=== PATIENT | female | born 1965 | race Caucasian/White ===

== ENCOUNTER 2018-08-22 08:30 | Outpatient (CLI) | payer BC ==
--- NOTE | 2018-08-22 10:33 | ULT ---
ABDOMINAL ULTRASOUND COMPLETE: History: Primary biliary cholangitis. FINDINGS: There is abnormal echogenicity throughout the liver as well as hepatomegaly measuring at least 22.4 c m. The gallbladder demonstrates an echogencity within the dependent portion of the gallbladder withou t shadowing, possibly a nonshadowing stone or focal nodular sludge. Common bile duct 0.4 cm. No abnor mal gallbladder wall thickening or pericholecystic fluid. No intrahepatic ductal dilatation. No evide nce for focal liver mass. Pancreas, IVC, aorta and spleen are unremarkable. The kidneys show no hydro nephrosis. IMPRESSION: Hepatomegaly with abnormal liver echogenicity. Nonshadowing echogencity within the gallbladder, possi reji a nonshadowing stone or focal nodular sludge without gallbladder wall thickening or ductal dilata tion. No abscess or abnormal fluid collection. POS: NAT
== END 2018-08-22 08:31 | disposition home or self-care (01) ==
LOC: BICULT 08:30
PROVIDERS: ATTEND Internal Medicine
DX: Z12.31 Encounter for screening mammogram for malignant neoplasm of breast (principal); K74.3 Primary biliary cirrhosis; I85.00 Esophageal varices without bleeding; Z12.11 Encounter for screening for malignant neoplasm of colon; R16.0 Hepatomegaly, not elsewhere classified; R93.2 Abnormal findings on diagnostic imaging of liver and biliary tract
CPT/HCPCS: 76700; 77063; 77067

== ENCOUNTER 2020-04-15 07:52 | Outpatient (CLI) | payer BC ==
--- NOTE | 2020-04-15 09:31 | ULT ---
ULTRASOUND ABDOMEN COMPLETE: DATE: 04/15/2020. HISTORY: A 54-year-old female with ICD-10: K74.3, primary biliary cholangitis. COMPARISON: 08/22/2018. TECHNIQUE: Barron-scale ultrasound evaluation of the liver, gallbladder, spleen, pancreas, common bile duct, kidne ys, abdominal aorta, and inferior vena cava (IVC). FINDINGS: No free fluid identified. Liver: Nodular margins. Coarse and heterogeneous parenchymal echotexture. Main portal vein: Hepatopetal flow. Common duct: 3 mm. Pancreas: Nonspecific sonographic appearance. Gallbladder: Once again, a nonshadowing, hyperechoic 0.5 x 1.9 cm intraluminal structure is present at the dependent portion of the gallbladder body, similar to prior study. Now, in addition, there ar e a few more of these nonshadowing hyperechoic structures. No excessive luminal distension. No mura l thickening. Bilateral kidneys: No hydronephrosis. Spleen: 20 x 4.5 cm. Abdominal aorta: Atherosclerotic irregularity throughout. No aneurysm. Inferior vena cava: Poorly visualized. IMPRESSION: 1. Cirrhosis. 2. Several nonshadowing hyperechoic foci in the gallbladder. These could be multiple gallstones or polyps. 3. Elongated but thin spleen. PASTOR Díaz POS: JOSE E
== END 2020-04-15 07:53 | disposition home or self-care (01) ==
LOC: SCSULT 07:52
PROVIDERS: ATTEND Internal Medicine
DX: Z12.11 Encounter for screening for malignant neoplasm of colon (principal); K74.3 Primary biliary cirrhosis; I85.00 Esophageal varices without bleeding; D73.89 Other diseases of spleen; Q89.09 Congenital malformations of spleen
CPT/HCPCS: 93975

== ENCOUNTER 2020-10-15 08:03 | Outpatient (CLI) | payer BC | END 2020-10-15 08:04 | disposition home or self-care (01) | LOC: BICULT 08:03 | PROVIDERS: ATTEND Internal Medicine | DX: I85.00 Esophageal varices without bleeding (principal); D12.6 Benign neoplasm of colon, unspecified; K74.3 Primary biliary cirrhosis; E55.9 Vitamin D deficiency, unspecified; K80.20 Calculus of gallbladder without cholecystitis without obstruction; R16.1 Splenomegaly, not elsewhere classified | CPT/HCPCS: 93975 ==

== ENCOUNTER 2020-10-15 08:34 | Outpatient (CLI) | payer BC | END 2020-10-15 08:35 | disposition home or self-care (01) | LOC: BICMAMMO 08:34 | PROVIDERS: ATTEND Internal Medicine | DX: Z13.820 Encounter for screening for osteoporosis (principal); K74.3 Primary biliary cirrhosis; I85.00 Esophageal varices without bleeding; D12.6 Benign neoplasm of colon, unspecified; E55.9 Vitamin D deficiency, unspecified; M85.89 Other specified disorders of bone density and structure, multiple sites | CPT/HCPCS: 77080 ==

== ENCOUNTER 2021-12-02 12:04 | Outpatient (CLI) | payer BC | END 2021-12-02 12:05 | disposition home or self-care (01) | LOC: BICRAD 12:04 | PROVIDERS: ATTEND Internal Medicine Rheumatology | DX: M25.561 Pain in right knee (principal) ==

== ENCOUNTER 2023-04-06 16:55 | Emergency (ER) | payer BC ==
[2023-04-06] MEDS ORDERED: Ondansetron PF 4 MG/2 ML Vial ONE (17:32)
[2023-04-06] MEDS ORDERED: cefTRIAXone (ROCEPHIN) 1 GM VIAL ONE ×2 (17:33→21:09)
[2023-04-06] MEDS ORDERED: Octreotide Acetate 500 MCG/ML VIAL ONE (17:33)
[2023-04-06] MEDS ORDERED: Pantoprazole 40 MG VIAL ONE (17:33)
[2023-04-06] MEDS ORDERED: fentaNYL PF 100 MCG/2 ML SYRINGE ONE (18:17)
[2023-04-06] MEDS ORDERED: Ketamine 50 MG/ML (10ML VIAL) ONE (18:18)
[2023-04-06 18:21] LABS: #Eosinphils 0.1 thou/uL (0.0-0.7); #Monocytes 0.5 thou/uL (0.11-0.59); #Neutrophils 4.1 thou/uL (1.40-6.50); %Basophils 0.7 % (0.0-1.0); %Eosinophils 0.9 % (0.0-10.0); %Monocytes 9.2 % (0.0-10.0); %Neutrophils 71.7 % (42.0-75.0); Hematocrit 28.4 % (36.0-47.0); Hemoglobin 9.3 g/dL (12.0-16.0); Mean Corpuscular HGB CONC 32.7 g/dL (32.0-36.0); Mean Corpuscular Hemoglobin 33.5 pg (27.0-31.0); Mean Corpuscular Volume 102.2 fl (78.0-98.0); Mean Platelet Volume 12.1 fL (7.4-10.4); Platelet Count 134 10x3/uL (130-400); RBC Distribution Width 13.5 % (11.5-14.5); Red Blood Cell (RBC) Count 2.78 mill/uL (4.20-5.40); White Blood Cell (WBC) Count 5.8 10x3/uL (4.8-10.8)
[2023-04-06 18:40] LABS: INR-International Normal Ratio 1.1; Prothrombin Time 14.5 sec (12.0-14.7)
[2023-04-06 18:41] LABS: PTT 33.2 sec (22.9-36.1)
[2023-04-06] MEDS ORDERED: Pantoprazole 80 MG in Sodium Chloride 0.9% 100 ML IVPB SCH (18:45)
[2023-04-06] MEDS ORDERED: Octreotide Acetate 1,250 MCG in Sodium Chloride 0.9% 250 ML 250 ML IVPB SCH ×2 (18:45→21:00)
[2023-04-06] MEDS ORDERED: PHENYLEPHRINE-NS 100 MCG/ML 10 ML SYRINGE ONE (18:50)
[2023-04-06] MEDS ORDERED: Lidocaine 1% PF 5 ML VIAL ONE (18:50)
[2023-04-06] MEDS ORDERED: Glycopyrrolate 0.2 MG/ML 5 ML SYRINGE ONE (18:50)
[2023-04-06] MEDS ORDERED: ePHEDrine Sulfate 50 MG/10 ML VIAL ONE (18:50)
[2023-04-06] MEDS ORDERED: Rocuronium Bromide 10 MG/ML (10ML VIAL) ONE (18:50)
[2023-04-06] MEDS ORDERED: Calcium Chloride 1 GM/10 ML Abboject SYRINGE ONE (18:50)
[2023-04-06] MEDS ORDERED: PROPOFOL 200 MG/20 ML VIAL ONE (18:50)
[2023-04-06] MEDS ORDERED: Succinylcholine 200 MG/10 ml SYRINGE FS ONE (18:50)
[2023-04-06 19:01] LABS: ALT (SGPT) 35 U/L (8-55); AST (SGOT) 48 U/L (5-34); Albumin 2.8 g/dL (3.5-5.0); Alkaline Phosphatase 226 U/L (40-110); Anion Gap 11 mmol/L (10-20); BUN (Urea Nitrogen) 35 mg/dL (9.8-20.1); Bilirubin, Total 1.1 mg/dL (0.2-1.2); Calc. Creatinine Clearance 0 mL/min (70-130); Calcium 8.9 mg/dL (7.8-10.44); Carbon Dioxide 23 mmol/L (22-29); Chloride 109 mmol/L (98-107); Estimated GFR 99; Globulin 4.1 g/dL (2.4-3.5); Glucose 85 mg/dL (70-105); Potassium 4.3 mmol/L (3.5-5.1); Protein, Total 6.9 g/dL (6.0-8.3); Sodium 139 mmol/L (136-145)
[2023-04-06] MEDS ORDERED: Midazolam HCl 2 mg/2 ml Vial ONE (20:00)
[2023-04-06] MEDS ORDERED: Propofol 1,000 MG/100 ML VIAL IV ONE ×2 (20:16→23:22)
[2023-04-06 20:32] LABS: Actual Bicarbonate (HCO3a) 20.4 mEq/L (22-28); Base Excess (BEa) -5.3 mEq/L (-2.0 to +3.0); CO2 Tension 40.5 mmHg (35.0-45.0); Calcium, Ionized (arterial) 1.16 mmol/L (1.12-1.30); Hematocrit-ABG 40 % (36.0-47.0); Hemoglobin (Hb) 13.6 g/dL (12.0-16.0); O2 Tension (PaO2), arterial 129.7 mmHg (80.0-100.0); Potassium - ABG Lab 5.01 mmol/L (3.70-5.30)
[2023-04-06 20:35] LABS: Puncture Site line
[2023-04-06 20:36] LABS: ALV-art Gradient 176.175 mmHg (0-20)
[2023-04-06] MEDS ORDERED: Sodium Chloride 0.9% 100 ML ONE (21:09)
[2023-04-06 23:21] LABS: #Monocytes 0.5 thou/uL (0.11-0.59); #Neutrophils 6.2 thou/uL (1.40-6.50); %Basophils 0.3 % (0.0-1.0); %Eosinophils 0.1 % (0.0-10.0); %Lymphocytes 9.6 % (21.0-51.0); %Monocytes 6.3 % (0.0-10.0); %Neutrophils 83.4 % (42.0-75.0); Mean Corpuscular HGB CONC 34.2 g/dL (32.0-36.0); Mean Corpuscular Hemoglobin 32.7 pg (27.0-31.0); Mean Platelet Volume 12.3 fL (7.4-10.4); Platelet Count 111 10x3/uL (130-400); RBC Distribution Width 15.5 % (11.5-14.5); Red Blood Cell (RBC) Count 3.98 mill/uL (4.20-5.40); White Blood Cell (WBC) Count 7.4 10x3/uL (4.8-10.8)
[2023-04-06 23:23] LABS: Mean Corpuscular Volume 95.5 fl (78.0-98.0)
== END 2023-04-06 18:44 | disposition short-term general hospital (02) ==
LOC: ERS 16:55
DX: K92.2 Gastrointestinal hemorrhage, unspecified (principal); K74.60 Unspecified cirrhosis of liver; F17.210 Nicotine dependence, cigarettes, uncomplicated; F17.290 Nicotine dependence, other tobacco product, uncomplicated; M19.90 Unspecified osteoarthritis, unspecified site; Z79.899 Other long term (current) drug therapy
CPT/HCPCS: 36415; 36416; 36430; 80053; 82805; 85025; 85610; 85730; 86850; 86900; 86901; 93005; 96365; 96375; C9113; J0696; J2250; J2354; J2405; J2704; J3490; P9012; P9016; P9048

== ENCOUNTER 2023-08-25 15:59 | Inpatient (IN) | payer BC ==
[2023-08-25 16:37] LABS: #Eosinphils 0.1 thou/uL (0.0-0.7); #Monocytes 0.6 thou/uL (0.11-0.59); #Neutrophils 4.7 thou/uL (1.40-6.50); %Basophils 0.3 % (0.0-1.0); %Eosinophils 1.4 % (0.0-10.0); %Lymphocytes 16.5 % (21.0-51.0); %Monocytes 9.5 % (0.0-10.0); Hematocrit 17.4 % (36.0-47.0); Hemoglobin 5.2 g/dL (12.0-16.0); Mean Corpuscular HGB CONC 29.9 g/dL (32.0-36.0); Mean Corpuscular Hemoglobin 30.8 pg (27.0-31.0); Mean Platelet Volume 10.5 fL (7.4-10.4); Platelet Count 160 10x3/uL (130-400); RBC Distribution Width 21.9 % (11.5-14.5); Red Blood Cell (RBC) Count 1.69 mill/uL (4.20-5.40); White Blood Cell (WBC) Count 6.5 10x3/uL (4.8-10.8)
[2023-08-25 17:02] LABS: Anion Gap 11 mmol/L (10-20); BUN (Urea Nitrogen) 16 mg/dL (9.8-20.1); Calc. Creatinine Clearance 0 mL/min (70-130); Calcium 7.9 mg/dL (7.8-10.44); Carbon Dioxide 23 mmol/L (22-29); Chloride 105 mmol/L (98-107); Estimated GFR 94; Glucose 104 mg/dL (70-105); Potassium 3.8 mmol/L (3.5-5.1); Sodium 135 mmol/L (136-145)
[2023-08-25] MEDS ORDERED: Acetaminophen 325 MG TAB PO PRN (17:46)
[2023-08-25 18:30] LABS: Hematocrit 15.8 % (36.0-47.0)
[2023-08-25 19:02] LABS: ALT (SGPT) 27 U/L (8-55); AST (SGOT) 52 U/L (5-34); Albumin 2.1 g/dL (3.5-5.0); Alkaline Phosphatase 243 U/L (40-110); Bilirubin, Direct 1.7 mg/dL (0.1-0.3); Bilirubin, Total 2.6 mg/dL (0.2-1.2); Protein, Total 5.9 g/dL (6.0-8.3)
[2023-08-25] MEDS: Pantoprazole 40 MG VIAL IVP SCH (21:40)
[2023-08-25] MEDS: Ondansetron PF 4 MG/2 ML Vial IVP PRN (21:41)
[2023-08-26 00:19] VITALS: BMI 34.3
[2023-08-26 02:02] LABS: Hematocrit 16.2 % (36.0-47.0)
[2023-08-26 02:27] LABS: Hemoglobin 5.1 g/dL (12.0-16.0)
[2023-08-26 02:29] LABS: Critical Call w/ Read Back NUR.KDL AT 229
[2023-08-26] MEDS: Pantoprazole 40 MG VIAL IVP SCH ×2 (08:36→22:46)
[2023-08-26] MEDS ORDERED: PROPOFOL 20 ML ONE ×3 (09:51→10:57)
[2023-08-26 09:57] LABS: Hematocrit 22.7 % (36.0-47.0); Hemoglobin 7.1 g/dL (12.0-16.0)
[2023-08-26] MEDS ORDERED: Lidocaine 2% PF 5 ML VIAL ONE (10:13)
[2023-08-26] MEDS ORDERED: Promethazine HCl 25 MG/ML VIAL IM PRN (11:17)
[2023-08-26] MEDS ORDERED: Ondansetron HCl/PF 4 MG/2 ML Vial IVP PRN (11:17)
[2023-08-26] MEDS: Ondansetron PF 4 MG/2 ML Vial IVP PRN (12:52)
[2023-08-26] MEDS ORDERED: Furosemide 40 MG TAB PO SCH (14:45)
[2023-08-26 16:05] LABS: Hematocrit 21.4 % (36.0-47.0); Hemoglobin 6.9 g/dL (12.0-16.0)
[2023-08-26] MEDS ORDERED: Acetaminophen 325 MG TAB PO PRN (17:17)
[2023-08-26] MEDS: Spironolactone 25 MG TAB PO SCH (17:58)
[2023-08-26] MEDS ORDERED: Non-Formulary Item 1 EACH (Lactulose 10 Gm/15ml Oral Sol 10 GM/15 ML Ml) PO SCH (21:00)
[2023-08-26] MEDS: Lactulose 20 GM (30 mL) UDCUP PO SCH (22:40)
[2023-08-26] MEDS: Rifaximin 550 MG TAB PO SCH (22:45)
[2023-08-27 05:22] LABS: #Eosinphils 0.1 thou/uL (0.0-0.7); #Monocytes 0.7 thou/uL (0.11-0.59); #Neutrophils 3.7 thou/uL (1.40-6.50); %Basophils 0.4 % (0.0-1.0); %Eosinophils 1.1 % (0.0-10.0); %Neutrophils 67.1 % (42.0-75.0); Hematocrit 22.5 % (36.0-47.0); Mean Corpuscular HGB CONC 31.1 g/dL (32.0-36.0); Mean Corpuscular Hemoglobin 30.3 pg (27.0-31.0); Mean Corpuscular Volume 97.4 fl (78.0-98.0); Mean Platelet Volume 11.3 fL (7.4-10.4); Platelet Count 119 10x3/uL (130-400); RBC Distribution Width 20.1 % (11.5-14.5); Red Blood Cell (RBC) Count 2.31 mill/uL (4.20-5.40); White Blood Cell (WBC) Count 5.6 10x3/uL (4.8-10.8)
[2023-08-27 05:46] LABS: ALT (SGPT) 31 U/L (8-55); AST (SGOT) 55 U/L (5-34); Albumin 1.9 g/dL (3.5-5.0); Alkaline Phosphatase 230 U/L (40-110); Anion Gap 7 mmol/L (10-20); BUN (Urea Nitrogen) 12 mg/dL (9.8-20.1); Bilirubin, Total 2.7 mg/dL (0.2-1.2); Calc. Creatinine Clearance 134 mL/min (70-130); Calcium 7.8 mg/dL (7.8-10.44); Carbon Dioxide 25 mmol/L (22-29); Chloride 109 mmol/L (98-107); Estimated GFR 91; Globulin 3.7 g/dL (2.4-3.5); Glucose 88 mg/dL (70-105); Potassium 3.9 mmol/L (3.5-5.1); Protein, Total 5.6 g/dL (6.0-8.3); Sodium 137 mmol/L (136-145)
[2023-08-27] MEDS ORDERED: Furosemide 40 MG TAB PO SCH (07:30)
[2023-08-27] MEDS: Spironolactone 25 MG TAB PO SCH (08:31)
[2023-08-27] MEDS: Pantoprazole 40 MG VIAL IVP SCH (08:32)
[2023-08-27] MEDS: Rifaximin 550 MG TAB PO SCH (08:32)
[2023-08-27] MEDS: Lactulose 20 GM (30 mL) UDCUP PO SCH (08:32)
[2023-08-27] MEDS ORDERED: Folic Acid 1 MG TAB PO SCH (09:00)
[2023-08-27] MEDS ORDERED: Cyanocobalamin (Vitamin B-12) 1,000 MCG TAB PO SCH (09:00)
[2023-08-27] MEDS ORDERED: Furosemide 20 MG TAB PO SCH (10:00)
[2023-08-27 14:48] VITALS: BP 94/56; TEMP 98.4
[2023-08-27] MEDS ORDERED: Triple Antibiotic Ointment 30 GM TUBE TOP SCH (15:00)
== END 2023-08-27 18:05 | disposition home or self-care (01) | DRG 378 ==
LOC: ERS 15:59 → 2SE 17:18 → SJJU 08-26 14:37 → OBSVTOIN 08-27 11:33
PROVIDERS: ADMIT Internal Medicine; ATTEND Internal Medicine
PROC: 30233N1 Transfusion of Nonautologous Red Blood Cells into Peripheral Vein, Percutaneous Approach (ICD-10-PCS; 2023-08-25)
PROC: 0W3P8ZZ Control Bleeding in Gastrointestinal Tract, Via Natural or Artificial Opening Endoscopic (ICD-10-PCS; principal; 2023-08-26)
DX: K31.811 Angiodysplasia of stomach and duodenum with bleeding (principal); D62 Acute posthemorrhagic anemia; K76.6 Portal hypertension; R18.8 Other ascites; E87.1 Hypo-osmolality and hyponatremia; I85.10 Secondary esophageal varices without bleeding; I86.4 Gastric varices; K76.82 Hepatic encephalopathy; D64.9 Anemia, unspecified; K74.3 Primary biliary cirrhosis; Z79.899 Other long term (current) drug therapy; D69.6 Thrombocytopenia, unspecified; Z87.891 Personal history of nicotine dependence; Z98.890 Other specified postprocedural states; Z98.51 Tubal ligation status; E66.01 Morbid (severe) obesity due to excess calories; Z68.34 Body mass index [BMI] 34.0-34.9, adult; Z71.84 Encounter for health counseling related to travel
CPT/HCPCS: 36415; 36430; 80048; 80053; 80076; 85014; 85018; 85025; 86850; 86900; 86901; 96374; 96375; 96376; 99285; C9113; G0378; J2001; J2405; J2704; P9016

== ENCOUNTER 2023-09-13 11:41 | Inpatient (IN) | payer BC ==
[2023-09-13 12:31] LABS: #Monocytes 0.4 thou/uL (0.11-0.59); %Basophils 0.5 % (0.0-1.0); %Eosinophils 0.9 % (0.0-10.0); %Lymphocytes 20.3 % (21.0-51.0); %Monocytes 9.9 % (0.0-10.0); %Neutrophils 67.9 % (42.0-75.0); Hemoglobin 5.4 g/dL (12.0-16.0); Mean Corpuscular Hemoglobin 30.5 pg (27.0-31.0); Mean Corpuscular Volume 101.7 fl (78.0-98.0); Mean Platelet Volume 10.5 fL (7.4-10.4); Platelet Count 164 10x3/uL (130-400); RBC Distribution Width 19.7 % (11.5-14.5); Red Blood Cell (RBC) Count 1.77 mill/uL (4.20-5.40); White Blood Cell (WBC) Count 4.4 10x3/uL (4.8-10.8)
[2023-09-13 12:36] LABS: Critical Call w/ Read Back NUR.MC19 @ 1236
[2023-09-13 12:53] LABS: ALT (SGPT) 35 U/L (8-55); AST (SGOT) 51 U/L (5-34); Albumin 2.4 g/dL (3.5-5.0); Alkaline Phosphatase 255 U/L (40-110); Anion Gap 9 mmol/L (10-20); BUN (Urea Nitrogen) 13 mg/dL (9.8-20.1); Bilirubin, Total 2.1 mg/dL (0.2-1.2); Calc. Creatinine Clearance 0 mL/min (70-130); Calcium 8.2 mg/dL (7.8-10.44); Carbon Dioxide 25 mmol/L (22-29); Chloride 105 mmol/L (98-107); Estimated GFR 95; Globulin 4.1 g/dL (2.4-3.5); Glucose 99 mg/dL (70-105); Potassium 3.7 mmol/L (3.5-5.1); Protein, Total 6.5 g/dL (6.0-8.3); Sodium 135 mmol/L (136-145)
[2023-09-13] MEDS ORDERED: Ondansetron PF 4 MG/2 ML Vial IVP PRN (15:12)
[2023-09-13] MEDS ORDERED: URSODIOL 500 MG TABLET PO SCH (21:00)
[2023-09-13] MEDS: Rifaximin 550 MG TAB PO SCH (21:44)
[2023-09-13] MEDS: Lactulose 20 GM (30 mL) UDCUP PO SCH (21:44)
[2023-09-13] MEDS: Pantoprazole 80 MG, Admixture Fee 1 EACH in Sodium Chloride 0.9% 100 ML IVPB SCH (21:44)
[2023-09-14 00:53] LABS: #Eosinphils 0.1 thou/uL (0.0-0.7); #Monocytes 0.5 thou/uL (0.11-0.59); #Neutrophils 2.5 thou/uL (1.40-6.50); %Basophils 0.7 % (0.0-1.0); %Eosinophils 2.2 % (0.0-10.0); %Lymphocytes 22.7 % (21.0-51.0); %Monocytes 12.5 % (0.0-10.0); %Neutrophils 61.7 % (42.0-75.0); Hematocrit 19.5 % (36.0-47.0); Hemoglobin 6.4 g/dL (12.0-16.0); Mean Corpuscular HGB CONC 32.8 g/dL (32.0-36.0); Mean Corpuscular Hemoglobin 31.8 pg (27.0-31.0); Mean Platelet Volume 10.2 fL (7.4-10.4); Platelet Count 135 10x3/uL (130-400); RBC Distribution Width 19.1 % (11.5-14.5); Red Blood Cell (RBC) Count 2.01 mill/uL (4.20-5.40); White Blood Cell (WBC) Count 4.1 10x3/uL (4.8-10.8)
[2023-09-14 08:57] LABS: #Eosinphils 0.1 thou/uL (0.0-0.7); #Monocytes 0.5 thou/uL (0.11-0.59); #Neutrophils 2.1 thou/uL (1.40-6.50); %Basophils 0.6 % (0.0-1.0); %Eosinophils 2.4 % (0.0-10.0); %Lymphocytes 21.5 % (21.0-51.0); %Monocytes 14.2 % (0.0-10.0); %Neutrophils 60.7 % (42.0-75.0); Hematocrit 23.2 % (36.0-47.0); Hemoglobin 7.4 g/dL (12.0-16.0); Mean Corpuscular HGB CONC 31.9 g/dL (32.0-36.0); Mean Corpuscular Hemoglobin 31.2 pg (27.0-31.0); Mean Corpuscular Volume 97.9 fl (78.0-98.0); Mean Platelet Volume 11.2 fL (7.4-10.4); Platelet Count 122 10x3/uL (130-400); RBC Distribution Width 19.4 % (11.5-14.5); Red Blood Cell (RBC) Count 2.37 mill/uL (4.20-5.40); White Blood Cell (WBC) Count 3.4 10x3/uL (4.8-10.8)
[2023-09-14] MEDS ORDERED: PROPOFOL 20 ML ONE ×2 (09:08→09:38)
[2023-09-14] MEDS ORDERED: Lidocaine 2% PF 5 ML VIAL ONE (09:28)
[2023-09-14] MEDS ORDERED: Promethazine HCl 25 MG/ML VIAL IM PRN (09:48)
[2023-09-14] MEDS ORDERED: Ondansetron HCl/PF 4 MG/2 ML Vial IVP PRN (09:48)
[2023-09-14 09:58] LABS: ALT (SGPT) 28 U/L (8-55); AST (SGOT) 45 U/L (5-34); Albumin 2.1 g/dL (3.5-5.0); Alkaline Phosphatase 235 U/L (40-110); Anion Gap 9 mmol/L (10-20); BUN (Urea Nitrogen) 10 mg/dL (9.8-20.1); Bilirubin, Total 3.3 mg/dL (0.2-1.2); Calc. Creatinine Clearance 143 mL/min (70-130); Calcium 7.8 mg/dL (7.6-10.4); Carbon Dioxide 22 mmol/L (22-29); Chloride 110 mmol/L (98-107); Estimated GFR 105; Globulin 3.6 g/dL (2.4-3.5); Glucose 84 mg/dL (70-105); Potassium 3.5 mmol/L (3.5-5.1); Protein, Total 5.7 g/dL (6.0-8.3); Sodium 137 mmol/L (136-145)
[2023-09-14] MEDS: Cyanocobalamin (Vitamin B-12) 1,000 MCG TAB PO SCH (09:59)
[2023-09-14] MEDS: Furosemide 40 MG TAB PO SCH (10:00)
[2023-09-14] MEDS: Folic Acid 1 MG TAB PO SCH (10:00)
[2023-09-14] MEDS: Pantoprazole 40 MG VIAL IVP SCH (10:00)
[2023-09-14] MEDS: Spironolactone 100 MG TAB PO SCH (10:01)
[2023-09-14 13:04] VITALS: BP 122/59; TEMP 98.1
== END 2023-09-14 14:45 | disposition home or self-care (01) | DRG 812 ==
LOC: ERS 11:41 → ERHOLD 15:16 → 2NO 18:33
PROVIDERS: ADMIT Internal Medicine; ATTEND Family Medicine
PROC: 30233N1 Transfusion of Nonautologous Red Blood Cells into Peripheral Vein, Percutaneous Approach (ICD-10-PCS; 2023-09-13)
PROC: 0W3P8ZZ Control Bleeding in Gastrointestinal Tract, Via Natural or Artificial Opening Endoscopic (ICD-10-PCS; principal; 2023-09-14)
DX: D64.9 Anemia, unspecified (principal); I85.10 Secondary esophageal varices without bleeding; K76.6 Portal hypertension; K31.819 Angiodysplasia of stomach and duodenum without bleeding; K74.60 Unspecified cirrhosis of liver; K31.89 Other diseases of stomach and duodenum; K74.3 Primary biliary cirrhosis; F17.210 Nicotine dependence, cigarettes, uncomplicated; Z79.899 Other long term (current) drug therapy; Z98.890 Other specified postprocedural states; Z98.51 Tubal ligation status
CPT/HCPCS: 36415; 36430; 80053; 85025; 86850; 86900; 86901; 86922; 93005; C9113; J2001; J2704; J3490; P9016

== ENCOUNTER 2023-09-30 16:43 | Day surgery (SDC) | payer BC, OTHER ==
[2023-09-30] MEDS: Acetaminophen 325 MG TAB ONE (17:50)
[2023-09-30] MEDS ORDERED: Acetaminophen 325 MG TAB PO SCH (18:00)
[2023-09-30 22:28] VITALS: BP 124/68; TEMP 98.5
== END 2023-09-30 22:30 | disposition home or self-care (01) ==
LOC: ONC/OP 16:43
PROVIDERS: ATTEND Physician Assistant Medical
DX: D50.0 Iron deficiency anemia secondary to blood loss (chronic) (principal)
CPT/HCPCS: 36430; 86850; 86860; 86870; 86880; 86900; 86901; 86922; P9016

== ENCOUNTER 2023-12-13 10:26 | Day surgery (SDC) | payer BC ==
[2023-12-13] MEDS ORDERED: diphenhydrAMINE 25 MG CAP PO SCH (10:45)
[2023-12-13] MEDS ORDERED: Acetaminophen 500 MG TAB ONE (11:17)
[2023-12-13] MEDS: Acetaminophen 500 MG TAB PO SCH (11:20)
[2023-12-13 13:46] VITALS: TEMP 98.3
[2023-12-13 14:59] VITALS: BP 121/60
== END 2023-12-13 15:10 | disposition home or self-care (01) ==
LOC: ONC/OP 10:26
PROVIDERS: ATTEND Internal Medicine
DX: D64.9 Anemia, unspecified (principal); D69.6 Thrombocytopenia, unspecified
CPT/HCPCS: 36430; 86850; 86900; 86901; 86921; P9016

== ENCOUNTER 2024-01-05 06:59 | Inpatient (IN) | payer BC ==
[2024-01-05] MEDS ORDERED: Cefepime 2 GM VIAL ONE (07:29)
[2024-01-05] MEDS ORDERED: Sodium Chloride 0.9% 100 ML ONE (07:29)
[2024-01-05 08:57] LABS: Actual Bicarbonate (HCO3v) 25.3 mEq/L (22-28); Base Excess -0.1 mEq/L (-2.0 to +3.0); Calcium, Ionized (venous) 1.24 mmol/L (1.16-1.32); Chloride (VBG) 109 mmol/L (98-106); Hematocrit-VBG 31 % (36.0-47.0); Hemoglobin (Hb) 10.4 g/dL (11.7-16.0); Potassium (VBG) 3.83 mmol/L (3.70-5.30); Sodium 146 mmol/L (133-146); pH (venous) 7.372 (7.32-7.43)
[2024-01-05 09:03] LABS: Acetaminophen Less than 10 mcg/mL (10.0-30.0); Alcohol Less than 10.0 mg/dL (Less than 10); Salicylate Less than 8.0 mg/dL (15.0-30.0)
[2024-01-05 09:04] LABS: ALT (SGPT) 106 U/L (8-55); AST (SGOT) 46 U/L (5-34); Albumin 2.7 g/dL (3.5-5.0); Alkaline Phosphatase 203 U/L (40-110); Anion Gap 13 mmol/L (10-20); BUN (Urea Nitrogen) 28 mg/dL (9.8-20.1); Bilirubin, Total 2.1 mg/dL (0.2-1.2); Calc. Creatinine Clearance 0 mL/min (70-130); Calcium 9.6 mg/dL (7.8-10.44); Carbon Dioxide 26 mmol/L (22-29); Chloride 110 mmol/L (98-107); Estimated GFR 102; Globulin 4.4 g/dL (2.4-3.5); Glucose 97 mg/dL (70-105); Potassium 3.7 mmol/L (3.5-5.1); Protein, Total 7.1 g/dL (6.0-8.3); Sodium 145 mmol/L (136-145)
[2024-01-05 09:22] LABS: Troponin I Less than 0.010 ng/mL (< 0.028)
[2024-01-05 09:52] LABS: Band 17 % (5-11); Lymphocytes 1 % (21-51); Monocytes 4 % (0-10); Neutrophil 78 % (42-75); Platelet Adequacy Comment Platelets Decreased; Polychromasia MODERATE = 3-4 cells HPF (0-2)
[2024-01-05 09:53] LABS: Hematocrit 29.9 % (36.0-47.0); Hemoglobin 8.8 g/dL (12.0-16.0); Mean Corpuscular HGB CONC 29.4 g/dL (32.0-36.0); Mean Corpuscular Hemoglobin 28.2 pg (27.0-31.0); Mean Corpuscular Volume 95.8 fL (78.0-98.0); Mean Platelet Volume 10.5 fL (7.4-10.4); Platelet Count 42 10x3/uL (130-400); RBC Distribution Width 17.3 % (11.5-14.5); Red Blood Cell (RBC) Count 3.12 mill/uL (4.20-5.40)
[2024-01-05 10:17] LABS: Prothrombin Time 13.6 sec (12.0-14.7)
[2024-01-05 10:17] LABS: Bacteria/HPF 1+ HPF (None Seen); Bilirubin Negative (Negative); Blood, Urine 1+ (Negative); CAUTI Indications for Culture Fever or rigors; Clarity Turbid (Clear); Glucose, Urine (Dipstick) Normal (Negative); Ketone, Urine Negative (Negative); Leukocyte 250 Leu/uL (Negative); Nitrite 2+ (Negative); Protein, Urine (Dipstick) 30 mg/dL (Neg-Trace); RBC/HPF 0-3 HPF (0-3); Specific Gravity, Urine 1.021 (1.002-1.036); Squamous Epithelial 0-3 HPF (0-3); Urine Culture Reflex Yes Yes; WBC/HPF 21-50 HPF (0-3); pH, Urine 8.5 (5.0-9.0)
[2024-01-05 10:19] LABS: Amphetamine Not Detected (NotDetected); Barbiturates Screen Not Detected (NotDetected); Benzodiazepine Screen Not Detected (NotDetected); Cocaine Metabolite Screen Not Detected (NotDetected); Methadone Not Detected (NotDetected); Methamphetamine Not Detected (NotDetected); Opiate Screen Not Detected (NotDetected); Oxycodone Screen Not Detected (NotDetected); Phencyclidine (PCP) Not Detected (NotDetected); THC/Cannabinoid Screen Not Detected (NotDetected); Tricyclic Screen Not Detected (NotDetected)
[2024-01-05] MEDS ORDERED: Iopamidol-370 76% 500 ML MDV (1 ML CHARGE) ONE (10:29)
[2024-01-05] MEDS ORDERED: Lactulose 20 GM (30 mL) UDCUP ONE (11:09)
[2024-01-05] MEDS ORDERED: Ondansetron PF 4 MG/2 ML Vial IVP PRN (11:36)
[2024-01-05] MEDS ORDERED: Ondansetron ODT 4 MG TAB PO PRN (11:36)
[2024-01-05 12:10] LABS: Lactic Acid 1.7 mmol/L (0.5-2.2)
[2024-01-05 12:13] LABS: Magnesium 1.9 mg/dL (1.6-2.6); Phosphorus 2.3 mg/dL (2.3-4.7)
[2024-01-05] MEDS: Vancomycin (BATCH) 1.5 GM in Premix 1 BAG IVPB SCH ×2 (12:26→22:20)
[2024-01-05 13:20] VITALS: BMI 27.3
[2024-01-05] MEDS ORDERED: Albumin 25% 100 ML ONE (14:39)
[2024-01-05] MEDS: D5 LR w/20 mEq KCL 1,000 ML IV SCH (14:47)
[2024-01-05] MEDS: Albumin 25% 25 GM (100 mL) BOT IVPB SCH (14:47)
[2024-01-05] MEDS: Vancomycin HCl 500 MG in Sodium Chloride 0.9% 100 ML IVPB SCH (15:02)
[2024-01-05] MEDS ORDERED: Dexamethasone 1 MG TAB PO SCH (17:00)
[2024-01-05 17:32] LABS: #Basophils Less than 0.03 10x3/uL (0.0-0.2); #Eosinphils Less than 0.03 10x3/uL (0.0-0.7); %Basophils 0.1 % (0.0-1.0); %Lymphocytes 3.6 % (21.0-51.0); %Monocytes 4.8 % (0.0-10.0); %Neutrophils 91.1 % (42.0-75.0); Hematocrit 23.8 % (36.0-47.0); Hemoglobin 7.1 g/dL (12.0-16.0); Mean Corpuscular HGB CONC 29.8 g/dL (32.0-36.0); Mean Corpuscular Hemoglobin 28.2 pg (27.0-31.0); Mean Corpuscular Volume 94.4 fL (78.0-98.0); Mean Platelet Volume 9.8 fL (7.4-10.4); Platelet Count 37 10x3/uL (130-400); RBC Distribution Width 17.4 % (11.5-14.5); Red Blood Cell (RBC) Count 2.52 mill/uL (4.20-5.40)
[2024-01-05 17:38] LABS: Anion Gap 13 mmol/L (10-20); BUN (Urea Nitrogen) 22 mg/dL (9.8-20.1); Calc. Creatinine Clearance 132 mL/min (70-130); Calcium 8.7 mg/dL (7.8-10.44); Carbon Dioxide 22 mmol/L (22-29); Estimated GFR 105; Glucose 98 mg/dL (70-105); Potassium 3.6 mmol/L (3.5-5.1)
[2024-01-05 17:42] LABS: Chloride 116 mmol/L (98-107); Sodium 147 mmol/L (136-145)
[2024-01-05] MEDS: Lactulose 20 GM (30 mL) UDCUP PO SCH (17:55)
[2024-01-05] MEDS: Sodium Ferric Gluconate 125 MG in Sodium Chloride 0.9% 100 ML IVPB SCH (18:38)
[2024-01-05] MEDS ORDERED: Cefepime 2 GM in Sodium Chloride 0.9% 100 ML IVPB SCH (20:00)
[2024-01-05] MEDS ORDERED: Vancomycin (BATCH) 1.5 GM in Premix 1 BAG IVPB SCH (20:00)
[2024-01-05] MEDS: cefTRIAXone\\ROCEPHIN 2 GM in Sodium Chloride 0.9% 100 ML IVPB SCH (20:18)
[2024-01-05] MEDS: Azithromycin 500 MG in Sodium Chloride 0.9% 250 ML 250 ML IVPB SCH (20:18)
[2024-01-05] MEDS: Dexamethasone 4 MG TAB PO SCH (20:19)
[2024-01-05] MEDS: Cyanocobalamin (Vitamin B-12) 1,000 MCG TAB PO SCH (20:19)
[2024-01-05] MEDS: Folic Acid 1 MG TAB PO SCH (20:19)
[2024-01-05] MEDS: Pantoprazole 40 MG VIAL IVP SCH (20:19)
[2024-01-05] MEDS: Rifaximin 550 MG TAB PO SCH (20:19)
[2024-01-05] MEDS ORDERED: Vancomycin 1 GM in Premix 1 BAG IVPB SCH (21:00)
[2024-01-05] MEDS: Benzonatate 100 MG CAP PO PRN (22:20)
[2024-01-05 22:38] LABS: Troponin I Less than 0.010 ng/mL (< 0.028)
[2024-01-06 04:12] LABS: #Basophils Less than 0.03 10x3/uL (0.0-0.2); #Eosinphils Less than 0.03 10x3/uL (0.0-0.7); %Lymphocytes 2.5 % (21.0-51.0); %Monocytes 2.2 % (0.0-10.0); %Neutrophils 94.9 % (42.0-75.0); Hematocrit 20.6 % (36.0-47.0); Hemoglobin 6.2 g/dL (12.0-16.0); Mean Corpuscular HGB CONC 30.1 g/dL (32.0-36.0); Mean Corpuscular Hemoglobin 28.6 pg (27.0-31.0); Mean Corpuscular Volume 94.9 fL (78.0-98.0); Mean Platelet Volume 9.3 fL (7.4-10.4); Platelet Count 31 10x3/uL (130-400); RBC Distribution Width 17.6 % (11.5-14.5); Red Blood Cell (RBC) Count 2.17 mill/uL (4.20-5.40)
[2024-01-06 04:19] LABS: Lactic Acid 0.8 mmol/L (0.5-2.2)
[2024-01-06 04:26] LABS: Vancomycin, Random 19.6 ug/mL (See Comment)
[2024-01-06 04:29] LABS: ALT (SGPT) 65 U/L (8-55); AST (SGOT) 32 U/L (5-34); Albumin 2.8 g/dL (3.5-5.0); Alkaline Phosphatase 134 U/L (40-110); Anion Gap 10 mmol/L (10-20); BUN (Urea Nitrogen) 17 mg/dL (9.8-20.1); Bilirubin, Total 2.6 mg/dL (0.2-1.2); Calc. Creatinine Clearance 137 mL/min (70-130); Calcium 8.8 mg/dL (7.8-10.44); Carbon Dioxide 23 mmol/L (22-29); Chloride 113 mmol/L (98-107); Estimated GFR 106; Glucose 132 mg/dL (70-105); Phosphorus 2.5 mg/dL (2.3-4.7); Potassium 3.7 mmol/L (3.5-5.1); Protein, Total 5.8 g/dL (6.0-8.3); Sodium 142 mmol/L (136-145)
[2024-01-06 07:53] LABS: Legionella Urinary Ag Negative (Negative); Strep pneumo Urine Ag NEGATIVE (NEGATIVE)
[2024-01-06] MEDS: Dexamethasone 4 MG TAB PO SCH (09:21)
[2024-01-06] MEDS: Sodium Ferric Gluconate 125 MG in Sodium Chloride 0.9% 100 ML IVPB SCH (11:48)
[2024-01-06 12:02] LABS: Hematocrit 24.2 % (36.0-47.0); Hemoglobin 7.4 g/dL (12.0-16.0)
[2024-01-06] MEDS: Albumin 25% 25 GM (100 mL) BOT IVPB SCH (15:17)
[2024-01-06 18:29] LABS: Hematocrit 23.4 % (36.0-47.0); Hemoglobin 7.2 g/dL (12.0-16.0)
[2024-01-06] MEDS: Vancomycin (BATCH) 1.25 GM in Premix 1 BAG IVPB SCH (20:22)
[2024-01-07 05:31] LABS: ALT (SGPT) 54 U/L (8-55); AST (SGOT) 20 U/L (5-34); Albumin 3.1 g/dL (3.5-5.0); Alkaline Phosphatase 121 U/L (40-110); Anion Gap 11 mmol/L (10-20); BUN (Urea Nitrogen) 12 mg/dL (9.8-20.1); Bilirubin, Total 2.2 mg/dL (0.2-1.2); Calc. Creatinine Clearance 155 mL/min (70-130); Calcium 9.4 mg/dL (7.8-10.44); Carbon Dioxide 20 mmol/L (22-29); Chloride 112 mmol/L (98-107); Estimated GFR 109; Globulin 2.8 g/dL (2.4-3.5); Glucose 143 mg/dL (70-105); Magnesium 1.9 mg/dL (1.6-2.6); Potassium 3.4 mmol/L (3.5-5.1); Protein, Total 5.9 g/dL (6.0-8.3); Sodium 140 mmol/L (136-145)
[2024-01-07 06:12] LABS: #Basophils Less than 0.03 10x3/uL (0.0-0.2); #Eosinphils Less than 0.03 10x3/uL (0.0-0.7); %Lymphocytes 4.7 % (21.0-51.0); %Monocytes 1.6 % (0.0-10.0); %Neutrophils 93.2 % (42.0-75.0); Hematocrit 25.2 % (36.0-47.0); Hemoglobin 7.8 g/dL (12.0-16.0); Mean Corpuscular Hemoglobin 28.8 pg (27.0-31.0); Mean Platelet Volume 10.7 fL (7.4-10.4); Platelet Count 28 10x3/uL (130-400); RBC Distribution Width 16.3 % (11.5-14.5); Red Blood Cell (RBC) Count 2.71 mill/uL (4.20-5.40)
[2024-01-07] MEDS: Potassium Chloride 20 MEQ TAB PO SCH (09:09)
[2024-01-07] MEDS: Dexamethasone 4 MG TAB PO SCH (09:09)
[2024-01-07] MEDS: Calcium Carbonate 500 MG ChewTAB PO PRN (09:10)
[2024-01-07 18:12] LABS: Hematocrit 28.8 % (36.0-47.0)
[2024-01-08 06:41] LABS: #Basophils Less than 0.03 10x3/uL (0.0-0.2); #Eosinphils Less than 0.03 10x3/uL (0.0-0.7); %Lymphocytes 5.6 % (21.0-51.0); %Monocytes 2.2 % (0.0-10.0); %Neutrophils 91.7 % (42.0-75.0); Hematocrit 27.7 % (36.0-47.0); Hemoglobin 8.6 g/dL (12.0-16.0); Mean Corpuscular Hemoglobin 28.7 pg (27.0-31.0); Mean Corpuscular Volume 92.3 fL (78.0-98.0); Mean Platelet Volume 9.9 fL (7.4-10.4); Platelet Count 28 10x3/uL (130-400); RBC Distribution Width 16.4 % (11.5-14.5)
[2024-01-08 07:08] LABS: Anion Gap 13 mmol/L (10-20); BUN (Urea Nitrogen) 16 mg/dL (9.8-20.1); Calc. Creatinine Clearance 150 mL/min (70-130); Calcium 9.3 mg/dL (7.8-10.44); Carbon Dioxide 21 mmol/L (22-29); Chloride 111 mmol/L (98-107); Estimated GFR 108; Glucose 140 mg/dL (70-105); Magnesium 1.8 mg/dL (1.6-2.6); Potassium 3.7 mmol/L (3.5-5.1); Sodium 141 mmol/L (136-145)
[2024-01-08 07:12] LABS: Vancomycin, Random 12.3 ug/mL (See Comment)
[2024-01-08] MEDS: Folic Acid 1 MG TAB PO SCH (09:44)
[2024-01-08] MEDS ORDERED: Glucagon 1 MG/ML KIT IM PRN (18:16)
[2024-01-08] MEDS ORDERED: Dextrose 5% in Water 1,000 ML IV PRN (18:16)
[2024-01-08] MEDS ORDERED: HumaLOG 300 UNITS/3 ML VIAL SC PRN ×2 (18:16)
[2024-01-08] MEDS ORDERED: Dextrose 50% Abboject 50 ML SYRINGE SLOW IVP PRN (18:16)
[2024-01-08] MEDS ORDERED: Meropenem 1 GM in Sodium Chloride 0.9% 100 ML IVPB SCH (22:00)
[2024-01-09 07:37] LABS: Anion Gap 12 mmol/L (10-20); BUN (Urea Nitrogen) 13 mg/dL (9.8-20.1); Calc. Creatinine Clearance 144 mL/min (70-130); Calcium 9.2 mg/dL (7.8-10.44); Carbon Dioxide 23 mmol/L (22-29); Chloride 106 mmol/L (98-107); Estimated GFR 107; Glucose 143 mg/dL (70-105); Magnesium 1.7 mg/dL (1.6-2.6); Potassium 3.4 mmol/L (3.5-5.1); Sodium 138 mmol/L (136-145)
[2024-01-09 07:53] LABS: #Basophils Less than 0.03 10x3/uL (0.0-0.2); #Eosinphils Less than 0.03 10x3/uL (0.0-0.7); %Lymphocytes 5.7 % (21.0-51.0); %Monocytes 2.9 % (0.0-10.0); %Neutrophils 90.6 % (42.0-75.0); Hematocrit 29.6 % (36.0-47.0); Hemoglobin 9.2 g/dL (12.0-16.0); Mean Corpuscular HGB CONC 31.1 g/dL (32.0-36.0); Mean Corpuscular Hemoglobin 28.8 pg (27.0-31.0); Mean Corpuscular Volume 92.5 fL (78.0-98.0); Platelet Count 20 10x3/uL (130-400); RBC Distribution Width 16.3 % (11.5-14.5)
[2024-01-09] MEDS: LevoFLOXacin 750 MG TAB PO SCH (20:26)
[2024-01-10 05:37] LABS: #Basophils Less than 0.03 10x3/uL (0.0-0.2); #Eosinphils Less than 0.03 10x3/uL (0.0-0.7); %Basophils 0.2 % (0.0-1.0); %Lymphocytes 4.4 % (21.0-51.0); %Monocytes 4.6 % (0.0-10.0); Hematocrit 32.3 % (36.0-47.0); Mean Corpuscular Hemoglobin 28.8 pg (27.0-31.0); Mean Corpuscular Volume 93.1 fL (78.0-98.0); Platelet Count 19 10x3/uL (130-400); RBC Distribution Width 16.6 % (11.5-14.5); Red Blood Cell (RBC) Count 3.47 mill/uL (4.20-5.40)
[2024-01-10 11:41] VITALS: BP 141/75; TEMP 97.9
[2024-01-10] MEDS: Dexamethasone 4 MG TAB PO SCH (14:12)
[2024-01-11] MEDS ORDERED: Dexamethasone 4 MG TAB PO SCH (08:00)
== END 2024-01-10 14:50 | disposition home or self-care (01) | DRG 871 ==
LOC: ERS 06:59 → ERHOLD 11:14 → 2SE 16:42 → SURG A 01-09 12:13
PROVIDERS: ADMIT Internal Medicine; ATTEND Family Medicine
PROC: 3E03329 Introduction of Other Anti-infective into Peripheral Vein, Percutaneous Approach (ICD-10-PCS; 2024-01-05)
PROC: 30233J1 Transfusion of Nonautologous Serum Albumin into Peripheral Vein, Percutaneous Approach (ICD-10-PCS; 2024-01-05)
PROC: 30233N1 Transfusion of Nonautologous Red Blood Cells into Peripheral Vein, Percutaneous Approach (ICD-10-PCS; principal; 2024-01-06)
DX: A41.59 Other Gram-negative sepsis (principal); G92.8 Other toxic encephalopathy; J18.9 Pneumonia, unspecified organism; N39.0 Urinary tract infection, site not specified; D59.11 Warm autoimmune hemolytic anemia; R65.20 Severe sepsis without septic shock; M19.90 Unspecified osteoarthritis, unspecified site; K21.9 Gastro-esophageal reflux disease without esophagitis; D64.9 Anemia, unspecified; Z98.51 Tubal ligation status; Z90.89 Acquired absence of other organs; Z79.899 Other long term (current) drug therapy; Z87.891 Personal history of nicotine dependence; K74.3 Primary biliary cirrhosis; J20.8 Acute bronchitis due to other specified organisms; K74.60 Unspecified cirrhosis of liver; D69.6 Thrombocytopenia, unspecified
CPT/HCPCS: 36415; 36416; 36430; 51701; 70450; 71045; 74177; 80048; 80053; 80202; 80306; 80307; 81001; 82140; 82247; 82274; 82533; 82728; 82805; 83010; 83540; 83550; 83605; 83615; 83735; 83880; 84100; 84145; 84484; 85025; 85046; 85610; 85730; 86850; 86860; 86870; 86880; 86900; 86901; 86921; 87040; 87070; 87077; 87081; 87086; 87149; 87186; 87205; 87449; 87633; 87899; 93005; 93010; 96374; 96375; C9113; J0456; J0692; J0696; J1815; J2916; J3370; J3480; J3490; J7050; J8540; P9016; P9047; Q9967

== ENCOUNTER 2024-01-13 12:45 | Day surgery (SDC) | payer BC ==
[2024-01-13] MEDS ORDERED: diphenhydrAMINE 25 MG CAP PO SCH (13:15)
[2024-01-13] MEDS ORDERED: Acetaminophen 500 MG TAB ONE (13:49)
[2024-01-13] MEDS: Acetaminophen 500 MG TAB PO SCH (13:50)
[2024-01-13 15:07] VITALS: BP 136/63; TEMP 97.9
== END 2024-01-13 15:10 | disposition home or self-care (01) ==
LOC: ONC/OP 12:45
PROVIDERS: ATTEND Internal Medicine
DX: D64.9 Anemia, unspecified (principal); D69.6 Thrombocytopenia, unspecified
CPT/HCPCS: 36430; 86850; 86900; 86901; P9035

== ENCOUNTER 2024-01-16 15:56 | Inpatient (IN) | payer BC, SELFPAY ==
[~2024-01-16 15:56] MED LIST: Iopamidol-370 76% 500 ML MDV (1 ML CHARGE) ONE
[2024-01-16 17:08] LABS: Hematocrit 33.9 % (36.0-47.0); Hemoglobin 10.5 g/dL (12.0-16.0); Mean Corpuscular Hemoglobin 29.5 pg (27.0-31.0); Mean Corpuscular Volume 95.2 fL (78.0-98.0); Platelet Count 25 10x3/uL (130-400); RBC Distribution Width 21.2 % (11.5-14.5); Red Blood Cell (RBC) Count 3.56 mill/uL (4.20-5.40)
[2024-01-16 17:23] LABS: ALT (SGPT) 101 U/L (8-55); AST (SGOT) 37 U/L (5-34); Albumin 2.6 g/dL (3.5-5.0); Alkaline Phosphatase 247 U/L (40-110); Anion Gap 16 mmol/L (10-20); BUN (Urea Nitrogen) 22 mg/dL (9.8-20.1); Bilirubin, Total 3.7 mg/dL (0.2-1.2); Calc. Creatinine Clearance 0 mL/min (70-130); Carbon Dioxide 25 mmol/L (22-29); Chloride 103 mmol/L (98-107); Estimated GFR 101; Globulin 3.6 g/dL (2.4-3.5); Glucose 344 mg/dL (70-105); Lipase 53 U/L (8-78); Potassium 4.7 mmol/L (3.5-5.1); Protein, Total 6.2 g/dL (6.0-8.3); Sodium 139 mmol/L (136-145)
[2024-01-16 17:27] LABS: Troponin I Less than 0.010 ng/mL (< 0.028)
[2024-01-16 17:38] LABS: Anisocytosis SLIGHT = 6-15 cells HPF (0-5); Band 22 % (5-11); Elliptocytes SLIGHT = 2-5 cells HPF (0-1); Hypochromia SLIGHT = 6-15 cells HPF (0-5); Lymphocytes 4 % (21-51); Monocytes 3 % (0-10); Myelocyte 1 % (0-0); Neutrophil 71 % (42-75); Ovalocytes SLIGHT = 2-5 cells HPF (0-1); Platelet Adequacy Comment Significant Decrease; Polychromasia SLIGHT = 2-3 cells HPF (0-2); Tear Drops SLIGHT = 2-5 cells HPF (0-1); Toxic Granulation SLIGHT; Vacuoles SLIGHT
[2024-01-16 19:38] LABS: Actual Bicarbonate (HCO3v) 28.4 mEq/L (22-28); Analyzer IN Cardio ER; Base Excess 6.3 mEq/L (-2.0 to +3.0); Calcium, Ionized (venous) 1.28 mmol/L (1.16-1.32); Chloride (VBG) 102 mmol/L (98-106); Hematocrit-VBG 32 % (36.0-47.0); Potassium (VBG) 4.74 mmol/L (3.70-5.30); Sodium 138 mmol/L (133-146); pH (venous) 7.564 (7.32-7.43)
[2024-01-16 20:10] LABS: INR-International Normal Ratio 1.1; PTT 25.1 sec (22.9-36.1); Prothrombin Time 14.5 sec (12.0-14.7)
[2024-01-16 20:43] LABS: Bacteria/HPF None Seen HPF (None Seen); Bilirubin Negative (Negative); Blood, Urine Negative (Negative); CAUTI Indications for Culture Dysuria,urgency,freq; Clarity Clear (Clear); Glucose, Urine (Dipstick) 500 mg/dL (Negative); Ketone, Urine Negative (Negative); Leukocyte Negative Leu/uL (Negative); Nitrite Negative (Negative); Protein, Urine (Dipstick) Negative (Neg-Trace); RBC/HPF 0-3 HPF (0-3); Squamous Epithelial 0-3 HPF (0-3); Urobilinogen Normal mg/dL (Less than 2); WBC/HPF 0-3 HPF (0-3); pH, Urine 6.5 (5.0-9.0)
[2024-01-16 20:44] LABS: Urine Culture Reflex No No
[2024-01-16] MEDS ORDERED: Cefepime 2 GM VIAL ONE (20:53)
[2024-01-16] MEDS ORDERED: Sodium Chloride 0.9% 100 ML ONE (20:53)
[2024-01-16] MEDS ORDERED: Thiamine HCl 200 MG/2 ML VIAL SLOW IVP SCH (23:30)
[2024-01-16] MEDS ORDERED: Ondansetron ODT 4 MG TAB PO PRN (23:34)
[2024-01-16] MEDS ORDERED: Acetaminophen 650 MG Suppository PR PRN (23:34)
[2024-01-17] MEDS: Vancomycin (BATCH) 2 GM in Premix 1 BAG IVPB SCH (02:06)
[2024-01-17] MEDS: Lactulose 20 GM (30 mL) UDCUP PO SCH ×2 (02:15→08:40)
[2024-01-17] MEDS: Doxycycline 100 MG in Sodium Chloride 0.9% 100 ML IVPB SCH (02:16)
[2024-01-17] MEDS: Piperacillin/Tazobactam 3.375 GM in Sodium Chloride 0.9% 100 ML IVPB SCH ×3 (02:16→05:41)
[2024-01-17 05:42] LABS: Anion Gap 15 mmol/L (10-20); BUN (Urea Nitrogen) 19 mg/dL (9.8-20.1); Calc. Creatinine Clearance 122 mL/min (70-130); Calcium 9.7 mg/dL (7.8-10.44); Carbon Dioxide 26 mmol/L (22-29); Chloride 105 mmol/L (98-107); Estimated GFR 102; Glucose 359 mg/dL (70-105); Potassium 3.9 mmol/L (3.5-5.1); Sodium 142 mmol/L (136-145); Vancomycin, Random 16.8 ug/mL (See Comment)
[2024-01-17 05:50] LABS: Hematocrit 32.1 % (36.0-47.0); Hemoglobin 9.9 g/dL (12.0-16.0); Mean Corpuscular HGB CONC 30.8 g/dL (32.0-36.0); Mean Corpuscular Hemoglobin 28.7 pg (27.0-31.0); Platelet Count 32 10x3/uL (130-400); RBC Distribution Width 21.2 % (11.5-14.5); Red Blood Cell (RBC) Count 3.45 mill/uL (4.20-5.40)
[2024-01-17 05:51] LABS: ALT (SGPT) 82 U/L (8-55); AST (SGOT) 30 U/L (5-34); Albumin 2.3 g/dL (3.5-5.0); Alkaline Phosphatase 214 U/L (40-110); Bilirubin, Total 2.8 mg/dL (0.2-1.2); Protein, Total 5.9 g/dL (6.0-8.3)
[2024-01-17 06:45] LABS: Anisocytosis MODERATE=16-30 cells HPF (0-5); Band 21 % (5-11); Hypochromia SLIGHT = 6-15 cells HPF (0-5); Large Platelets 2.9 % (0-5); Lymphocytes 1 % (21-51); Macrocytosis SLIGHT = 6-15 cells HPF (0-5); Monocytes 2 % (0-10); Neutrophil 76 % (42-75); Ovalocytes SLIGHT = 2-5 cells HPF (0-1); Platelet Adequacy Comment Significant Decrease; Polychromasia SLIGHT = 2-3 cells HPF (0-2); Smudge Cells 2.9 %
[2024-01-17] MEDS: Dexamethasone 4 MG TAB PO SCH (08:39)
[2024-01-17] MEDS: Rifaximin 550 MG TAB PO SCH (08:39)
[2024-01-17] MEDS: Vancomycin (BATCH) 1.25 GM in Premix 1 BAG IVPB SCH (10:54)
[2024-01-17] MEDS: Ipratropium/Albuterol 3 ML NEB NEB PRN (11:29)
[2024-01-17 21:37] LABS: Legionella Urinary Ag Negative (Negative); Strep pneumo Urine Ag NEGATIVE (NEGATIVE)
[2024-01-18] MEDS: Benzonatate 100 MG CAP PO SCH (15:35)
[2024-01-18] MEDS: Spironolactone 100 MG TAB PO SCH (16:29)
[2024-01-18] MEDS: Ferrous Gluconate 324 MG TAB PO SCH (16:30)
[2024-01-19 06:24] LABS: Hemoglobin 9.4 g/dL (12.0-16.0); Mean Corpuscular HGB CONC 31.3 g/dL (32.0-36.0); Mean Corpuscular Hemoglobin 29.7 pg (27.0-31.0); Mean Corpuscular Volume 94.6 fL (78.0-98.0); Platelet Count 63 10x3/uL (130-400); RBC Distribution Width 21.7 % (11.5-14.5); Red Blood Cell (RBC) Count 3.17 mill/uL (4.20-5.40)
[2024-01-19 06:40] LABS: Anion Gap 11 mmol/L (10-20); BUN (Urea Nitrogen) 19 mg/dL (9.8-20.1); Calc. Creatinine Clearance 122 mL/min (70-130); Calcium 10.3 mg/dL (7.8-10.44); Carbon Dioxide 26 mmol/L (22-29); Chloride 104 mmol/L (98-107); Estimated GFR 102; Glucose 339 mg/dL (70-105); Potassium 4.2 mmol/L (3.5-5.1); Sodium 137 mmol/L (136-145)
[2024-01-19 07:51] LABS: Anisocytosis SLIGHT = 6-15 cells HPF (0-5); Band 16 % (5-11); Lymphocytes 1 % (21-51); Metamyelocyte 1 % (0-0); Neutrophil 81 % (42-75); Platelet Adequacy Comment Significant Decrease; Reactive Lymphocytes 1 % (0-10); Schistocytes SLIGHT = 2-5 cells HPF (0-1); Tear Drops SLIGHT = 2-5 cells HPF (0-1)
[2024-01-19] MEDS: Folic Acid 1 MG TAB PO SCH (09:05)
[2024-01-19] MEDS: Cyanocobalamin (Vitamin B-12) 1,000 MCG TAB PO SCH (09:05)
[2024-01-19] MEDS: Guaifenesin DM 100-10/5 ML UDCUP PO PRN (14:38)
[2024-01-20] MEDS ORDERED: Dexamethasone 1 MG TAB PO SCH (09:00)
[2024-01-20] MEDS: Dexamethasone 4 MG TAB PO SCH (10:32)
[2024-01-20] MEDS: Fluconazole In NaCl,Iso-Osm 100 MG in Admixture Fee 1 EACH IVPB SCH (11:13)
[2024-01-20] MEDS: NACL ISO OSM IVPB SCH (11:18)
[2024-01-20] MEDS: FLUCONAZOLE IVPB SCH (11:18)
[2024-01-21] MEDS: Fluconazole In NaCl,Iso-Osm 100 MG in Admixture Fee 1 EACH IVPB SCH (09:18)
[2024-01-21] MEDS: Pantoprazole DR 40 MG TAB PO SCH (17:29)
[2024-01-21] MEDS: Hydrocortisone/Pramoxine (Proctofoam HC) 10 GM BOX TOP SCH ×2 (17:30→21:43)
[2024-01-21] MEDS: Acetaminophen 325 MG TAB PO PRN (21:42)
[2024-01-21] MEDS: Lactulose 20 GM (30 mL) UDCUP PO SCH (21:43)
[2024-01-22 06:25] LABS: ALT (SGPT) 94 U/L (8-55); AST (SGOT) 67 U/L (5-34); Albumin 1.7 g/dL (3.5-5.0); Alkaline Phosphatase 312 U/L (40-110); Anion Gap 12 mmol/L (10-20); BUN (Urea Nitrogen) 20 mg/dL (9.8-20.1); Bilirubin, Total 3.2 mg/dL (0.2-1.2); Calc. Creatinine Clearance 124 mL/min (70-130); Calcium 11.9 mg/dL (7.8-10.44); Carbon Dioxide 26 mmol/L (22-29); Chloride 101 mmol/L (98-107); Estimated GFR 103; Globulin 4.7 g/dL (2.4-3.5); Glucose 297 mg/dL (70-105); Potassium 4.8 mmol/L (3.5-5.1); Protein, Total 6.4 g/dL (6.0-8.3); Sodium 134 mmol/L (136-145)
[2024-01-22 06:29] LABS: Hematocrit 31.7 % (36.0-47.0); Hemoglobin 9.9 g/dL (12.0-16.0); Mean Corpuscular HGB CONC 31.2 g/dL (32.0-36.0); Mean Corpuscular Hemoglobin 28.8 pg (27.0-31.0); Mean Corpuscular Volume 92.2 fL (78.0-98.0); Mean Platelet Volume 10.7 fL (7.4-10.4); Platelet Count 114 10x3/uL (130-400); RBC Distribution Width 22.1 % (11.5-14.5); Red Blood Cell (RBC) Count 3.44 mill/uL (4.20-5.40)
[2024-01-22 08:44] LABS: Anisocytosis MARKED = >30 cells HPF (0-5); Band 13 % (5-11); Burr Cells MODERATE= 6-15 cells HPF (0-1); Lymphocytes 1 % (21-51); Macrocytosis MARKED = >30 cells HPF (0-5); Neutrophil 86 % (42-75); Ovalocytes SLIGHT = 2-5 cells HPF (0-1); Platelet Adequacy Comment Platelets Decreased; Polychromasia MODERATE = 3-4 cells HPF (0-2)
[2024-01-22] MEDS: Pantoprazole DR 40 MG TAB PO SCH (09:07)
[2024-01-22 10:45] LABS: Anion Gap 12 mmol/L (10-20); BUN (Urea Nitrogen) 19 mg/dL (9.8-20.1); Calc. Creatinine Clearance 124 mL/min (70-130); Calcium 12.2 mg/dL (7.8-10.44); Carbon Dioxide 27 mmol/L (22-29); Chloride 101 mmol/L (98-107); Estimated GFR 103; Glucose 272 mg/dL (70-105); Potassium 4.9 mmol/L (3.5-5.1); Sodium 135 mmol/L (136-145)
[2024-01-22] MEDS: Sodium Chloride 0.9% 1,000 ML IV SCH (20:42)
[2024-01-23 06:52] LABS: ALT (SGPT) 94 U/L (8-55); AST (SGOT) 65 U/L (5-34); Albumin 1.7 g/dL (3.5-5.0); Alkaline Phosphatase 342 U/L (40-110); Anion Gap 11 mmol/L (10-20); BUN (Urea Nitrogen) 25 mg/dL (9.8-20.1); Bilirubin, Total 3.6 mg/dL (0.2-1.2); Calc. Creatinine Clearance 118 mL/min (70-130); Calcium 12.1 mg/dL (7.8-10.44); Carbon Dioxide 27 mmol/L (22-29); Chloride 98 mmol/L (98-107); Estimated GFR 101; Globulin 4.9 g/dL (2.4-3.5); Glucose 360 mg/dL (70-105); Protein, Total 6.6 g/dL (6.0-8.3); Sodium 131 mmol/L (136-145)
[2024-01-23 07:36] LABS: Hematocrit 31.8 % (36.0-47.0); Hemoglobin 10.1 g/dL (12.0-16.0); Mean Corpuscular HGB CONC 31.8 g/dL (32.0-36.0); Mean Corpuscular Hemoglobin 29.1 pg (27.0-31.0); Mean Corpuscular Volume 91.6 fL (78.0-98.0); Platelet Count 115 10x3/uL (130-400); RBC Distribution Width 22.6 % (11.5-14.5); Red Blood Cell (RBC) Count 3.47 mill/uL (4.20-5.40)
[2024-01-23 07:38] LABS: Band 14 % (5-11); Lymphocytes 1 % (21-51); Monocytes 1 % (0-10); Neutrophil 84 % (42-75); Platelet Adequacy Comment Platelets Decreased; Polychromasia SLIGHT = 2-3 cells HPF (0-2); Schistocytes SLIGHT = 2-5 cells HPF (0-1); Target Cells SLIGHT = 2-5 cells HPF (0-1)
[2024-01-23 10:53] LABS: Fluid, pH - Pleural Fld Greater than 7.500 (7.60 - 7.66)
[2024-01-23 11:18] LABS: RBC Count-Automated (BF) 40070 /cu.mm; WBC/Nucleated-Auto (BF) 13842 /cu.mm
[2024-01-23 11:34] LABS: Fluid, Triglycerides 51 mg/dL (Not Available); Pleural Fluid, Amylase 98 U/L (Not Available); Pleural Fluid, Glucose 350 mg/dL; Pleural Fluid, LDH Greater than 7500 U/L (Not Available); Pleural Fluid, Protein 3.6 g/dL
[2024-01-23 12:02] LABS: BF Color Red; Body Fluid Source Thoracentesis Fluid; Clarity Cloudy/Turbid (Clear); Tube # EDTA
[2024-01-23 12:14] LABS: BF Segmented Neutrophils 78 %; Cell Count Non Hematic 21 %
[2024-01-23] MEDS ORDERED: HYDROcodone/Acetaminophen 5/325 mg Tablet PO PRN (14:04)
[2024-01-23] MEDS: HYDROcodone/Acetaminophen 5/325 mg Tablet PO SCH (15:17)
[2024-01-23 16:14] LABS: Reference Lab Name LABCORP
[2024-01-23] MEDS: Hydrocortisone 2.5%/Pramoxine 1% CRM 30 GM TUBE TOP SCH (18:40)
[2024-01-24 05:48] LABS: Hematocrit 32.2 % (36.0-47.0); Mean Corpuscular HGB CONC 31.1 g/dL (32.0-36.0); Mean Corpuscular Hemoglobin 28.7 pg (27.0-31.0); Mean Corpuscular Volume 92.5 fL (78.0-98.0); Mean Platelet Volume 10.6 fL (7.4-10.4); Platelet Count 96 10x3/uL (130-400); RBC Distribution Width 22.9 % (11.5-14.5); Red Blood Cell (RBC) Count 3.48 mill/uL (4.20-5.40)
[2024-01-24 05:55] LABS: ALT (SGPT) 109 U/L (8-55); AST (SGOT) 79 U/L (5-34); Albumin 1.6 g/dL (3.5-5.0); Alkaline Phosphatase 391 U/L (40-110); Anion Gap 9 mmol/L (10-20); BUN (Urea Nitrogen) 24 mg/dL (9.8-20.1); Bilirubin, Total 3.8 mg/dL (0.2-1.2); Calc. Creatinine Clearance 110 mL/min (70-130); Calcium 12.3 mg/dL (7.8-10.44); Carbon Dioxide 26 mmol/L (22-29); Chloride 101 mmol/L (98-107); Estimated GFR 93; Globulin 4.9 g/dL (2.4-3.5); Glucose 384 mg/dL (70-105); Potassium 4.7 mmol/L (3.5-5.1); Protein, Total 6.5 g/dL (6.0-8.3); Sodium 131 mmol/L (136-145)
[2024-01-24 06:13] LABS: Anisocytosis SLIGHT = 6-15 cells HPF (0-5); Band 10 % (5-11); Lymphocytes 1 % (21-51); Monocytes 1 % (0-10); Neutrophil 89 % (42-75); Platelet Adequacy Comment Platelets Decreased; Polychromasia SLIGHT = 2-3 cells HPF (0-2)
[2024-01-24] MEDS: Hydrocortisone 2.5%/Pramoxine 1% CRM 30 GM TUBE TOP SCH (10:19)
[2024-01-24] MEDS: Sodium Chloride 0.9% 1,000 ML IV SCH (11:57)
[2024-01-24] MEDS: methylPREDNISolone Sod Succ 40 MG VIAL IVP SCH (12:30)
[2024-01-24 14:47] LABS: Reference Lab Name LABCORP
[2024-01-24] MEDS: HYDROcodone/Acetaminophen 5/325 mg Tablet PO PRN (23:11)
[2024-01-24] MEDS: Ondansetron PF 4 MG/2 ML Vial IVP PRN (23:12)
[2024-01-24 23:33] LABS: Magnesium 1.5 mg/dL (1.6-2.6)
[2024-01-25] MEDS: Magnesium 2 GM/50 ML(in water) 2 GM in Premix 1 BAG IVPB SCH (01:08)
[2024-01-25 05:53] LABS: Hemoglobin 9.8 g/dL (12.0-16.0); Mean Corpuscular HGB CONC 31.6 g/dL (32.0-36.0); Mean Corpuscular Hemoglobin 28.6 pg (27.0-31.0); Mean Corpuscular Volume 90.4 fL (78.0-98.0); Mean Platelet Volume 10.7 fL (7.4-10.4); Platelet Count 109 10x3/uL (130-400); RBC Distribution Width 23.2 % (11.5-14.5); Red Blood Cell (RBC) Count 3.43 mill/uL (4.20-5.40)
[2024-01-25 06:21] LABS: ALT (SGPT) 118 U/L (8-55); AST (SGOT) 89 U/L (5-34); Albumin 1.4 g/dL (3.5-5.0); Alkaline Phosphatase 440 U/L (40-110); Anion Gap 11 mmol/L (10-20); BUN (Urea Nitrogen) 27 mg/dL (9.8-20.1); Bilirubin, Total 4.4 mg/dL (0.2-1.2); Calc. Creatinine Clearance 109 mL/min (70-130); Calcium 12.8 mg/dL (7.8-10.44); Carbon Dioxide 26 mmol/L (22-29); Chloride 97 mmol/L (98-107); Estimated GFR 92; Globulin 4.9 g/dL (2.4-3.5); Glucose 300 mg/dL (70-105); Potassium 4.6 mmol/L (3.5-5.1); Protein, Total 6.3 g/dL (6.0-8.3); Sodium 129 mmol/L (136-145)
[2024-01-25 06:55] LABS: Anisocytosis SLIGHT = 6-15 cells HPF (0-5); Band 12 % (5-11); Neutrophil 87 % (42-75); Plasma Cells 1 % (0-0); Platelet Adequacy Comment Platelets Decreased; Polychromasia SLIGHT = 2-3 cells HPF (0-2)
[2024-01-25] MEDS ORDERED: Glucagon 1 MG/ML KIT IM PRN (08:56)
[2024-01-25] MEDS ORDERED: Dextrose 50% Abboject 50 ML SYRINGE SLOW IVP PRN (08:56)
[2024-01-25] MEDS ORDERED: Dextrose 5% in Water 1,000 ML IV PRN (08:56)
[2024-01-25] MEDS ORDERED: HumaLOG 300 UNITS/3 ML VIAL SC PRN (08:56)
[2024-01-25 09:38] LABS: Magnesium 2.4 mg/dL (1.6-2.6)
[2024-01-25] MEDS: Calcitonin,Salmon,Synthetic 400 UNITS/2 ML SC SCH (10:30)
[2024-01-25] MEDS: Insulin Lispro 100 UNIT/ML 10 ML VIAL SC PRN (11:54)
[2024-01-25 13:18] LABS: Cytoplasmic (C-ANCA) <1:20 titer (Neg:<1:20); Myeloperoxidase AutoAbs <0.2 units (0.0-0.9); Perinuclear (P-ANCA) <1:20 titer (Neg:<1:20); Proteinase-3 AutoAbs Less than 0.2 units (0.0-0.9)
[2024-01-25] MEDS: Cholecalciferol 1,000 UNITS (25 MCG) TAB PO SCH (14:23)
[2024-01-25 16:59] LABS: Complement-C3 56 mg/dL (83-193); Complement-C4 12 mg/dL (15-57)
[2024-01-25] MEDS: methylPREDNISolone Sod Succ 40 MG VIAL IVP SCH (18:01)
[2024-01-26] MEDS: LACTULOSE PO SCH (08:44)
[2024-01-26 10:24] LABS: #Basophils 0.05 10x3/uL (0.0-0.2); #Eosinphils Less than 0.03 10x3/uL (0.0-0.7); %Basophils 0.3 % (0.0-1.0); %Monocytes 0.9 % (0.0-10.0); %Neutrophils 96.7 % (42.0-75.0); Hematocrit 32.2 % (36.0-47.0); Hemoglobin 10.1 g/dL (12.0-16.0); Mean Corpuscular HGB CONC 31.4 g/dL (32.0-36.0); Mean Corpuscular Hemoglobin 28.7 pg (27.0-31.0); Mean Corpuscular Volume 91.5 fL (78.0-98.0); Mean Platelet Volume 11.7 fL (7.4-10.4); Platelet Count 89 10x3/uL (130-400); RBC Distribution Width 23.9 % (11.5-14.5); Red Blood Cell (RBC) Count 3.52 mill/uL (4.20-5.40)
[2024-01-26 10:36] LABS: Anion Gap 17 mmol/L (10-20); BUN (Urea Nitrogen) 35 mg/dL (9.8-20.1); Calc. Creatinine Clearance 133 mL/min (70-130); Calcium 13.2 mg/dL (7.8-10.44); Carbon Dioxide 20 mmol/L (22-29); Chloride 101 mmol/L (98-107); Estimated GFR 104; Glucose 233 mg/dL (70-105); Potassium 4.7 mmol/L (3.5-5.1); Sodium 133 mmol/L (136-145)
[2024-01-26] MEDS: Sodium Chloride 0.9% 1,000 ML IV SCH (13:08)
[2024-01-26 17:42] LABS: Free T4 (Free Thyroxine) Greater than 5.00 ng/dL (0.70-1.48); Thyroid Stimulating Hormone Less than 0.0083 uIU/mL (0.35-4.94)
[2024-01-26] MEDS: Cinacalcet HCl 30 MG TAB PO SCH (18:33)
[2024-01-26] MEDS: Propranolol HCl 20 MG TAB PO SCH (18:35)
[2024-01-26] MEDS: Methimazole 5 MG TAB PO SCH (18:40)
[2024-01-26] MEDS: Potassium Iodide 1,000 MG/ML ORAL SOL PO SCH (21:28)
[2024-01-27 04:16] LABS: Hematocrit 29.7 % (36.0-47.0); Hemoglobin 9.5 g/dL (12.0-16.0); Mean Corpuscular Hemoglobin 28.2 pg (27.0-31.0); Mean Corpuscular Volume 88.1 fL (78.0-98.0); Mean Platelet Volume 10.1 fL (7.4-10.4); Platelet Count 106 10x3/uL (130-400); RBC Distribution Width 24.1 % (11.5-14.5); Red Blood Cell (RBC) Count 3.37 mill/uL (4.20-5.40)
[2024-01-27 04:37] LABS: Anion Gap 14 mmol/L (10-20); Anisocytosis SLIGHT = 6-15 cells HPF (0-5); BUN (Urea Nitrogen) 42 mg/dL (9.8-20.1); Band 11 % (5-11); Calc. Creatinine Clearance 136 mL/min (70-130); Calcium 11.9 mg/dL (7.8-10.44); Carbon Dioxide 22 mmol/L (22-29); Chloride 104 mmol/L (98-107); Estimated GFR 105; Glucose 310 mg/dL (70-105); Hypochromia SLIGHT = 6-15 cells HPF (0-5); Lymphocytes 1 % (21-51); Monocytes 1 % (0-10); Neutrophil 86 % (42-75); Nucleated RBC (Manual Ct) 1 % (0); Platelet Adequacy Comment Platelets Decreased; Poikilocytosis SLIGHT = 6-15 cells HPF (0-5); Polychromasia SLIGHT = 2-3 cells HPF (0-2); Potassium 4.5 mmol/L (3.5-5.1); Sodium 135 mmol/L (136-145); Toxic Granulation SLIGHT
[2024-01-27] MEDS: Metoprolol Tartrate 5 MG (5 mL) VIAL IVP SCH (05:08)
[2024-01-27 05:23] LABS: Magnesium 1.6 mg/dL (1.6-2.6)
[2024-01-27] MEDS ORDERED: Magnesium Sulfate 2 GM in Sodium Chloride 0.9% 100 ML IVPB SCH (05:30)
[2024-01-27] MEDS: Magnesium 2 GM/50 ML(in water) 2 GM in Premix 1 BAG IVPB SCH (06:05)
[2024-01-27] MEDS: Furosemide 40 MG (4 mL) VIAL SLOW IVP SCH (07:15)
[2024-01-27 07:34] LABS: Base Excess (BEa) 2.2 mEq/L (-2.0 to +3.0); CO2 Tension 42.7 mmHg (35.0-45.0); Hematocrit-ABG 33 % (36.0-47.0); Hemoglobin (Hb) 11.2 g/dL (12.0-16.0); Potassium - ABG Lab 4.31 mmol/L (3.70-5.30); pH, Arterial 7.418 (7.35-7.45)
[2024-01-27] MEDS ORDERED: Ventilator Sedation Protocol 1 EACH FS SCH (07:35)
[2024-01-27] MEDS ORDERED: DISCONTINUE PREVIOUS NARCOTIC PAIN MEDICATIONS AND BENZODIAZEPINES FS SCH (07:45)
[2024-01-27] MEDS ORDERED: Fentanyl BOLUS 250 ML IVPB PRN (07:45)
[2024-01-27] MEDS ORDERED: Propofol BOLUS 1,000 MG/100 ML VIAL IV PRN (07:45)
[2024-01-27] MEDS ORDERED: Propofol 1,000 MG/100 ML VIAL IV PRN (07:45)
[2024-01-27 07:58] LABS: ALV-art Gradient 461.425 mmHg (0-20); O2 Tension (PaO2), arterial 55.6 mmHg (80.0-100.0); Puncture Site LR
[2024-01-27] MEDS: Etomidate 40 MG (20 mL) VIAL ONE (08:06)
[2024-01-27] MEDS: Fentanyl CADD 100 ML IV SCH (08:36)
[2024-01-27 08:38] LABS: Actual Bicarbonate (HCO3a) 24.9 mEq/L (22-28); Base Excess (BEa) 1.1 mEq/L (-2.0 to +3.0); CO2 Tension 36.5 mmHg (35.0-45.0); Calcium, Ionized (arterial) 1.54 mmol/L (1.12-1.30); Carboxyhemoglobin (COHb) 0.5 gm% (0.0-3.0); Hematocrit-ABG 31 % (36.0-47.0); Hemoglobin (Hb) 10.4 g/dL (12.0-16.0); pH, Arterial 7.452 (7.35-7.45)
[2024-01-27 08:46] LABS: ALV-art Gradient 568.375 mmHg (0-20); Puncture Site RRA
[2024-01-27] MEDS: Lorazepam 2 MG/ML VIAL SLOW IVP PRN (08:59)
[2024-01-27] MEDS ORDERED: Cholecalciferol 1,000 UNITS (25 MCG) TAB PO SCH (09:00)
[2024-01-27] MEDS: NOREPINEPHRINE 8 MG/250 ML-D5W 250 ML ONE (09:09)
[2024-01-27] MEDS: Albumin 25% 25 GM (100 mL) BOT IVPB SCH ×2 (09:44→13:29)
[2024-01-27 10:14] LABS: Fungitell Beta (1,3) D-Glucan Positive (.)
[2024-01-27 10:14] LABS: Complement-C4 18 mg/dL (15-57)
[2024-01-27 10:18] LABS: Albumin 1.4 g/dL (3.5-5.0)
[2024-01-27] MEDS: Piperacillin/Tazobactam 3.375 GM in Sodium Chloride 0.9% 100 ML IVPB SCH (10:38)
[2024-01-27] MEDS: Cholecalciferol 1,000 UNITS (25 MCG) TAB PO SCH (10:40)
[2024-01-27] MEDS: Rifaximin 550 MG TAB PER TUBE SCH (10:43)
[2024-01-27] MEDS: Micafungin 100 MG in Sodium Chloride 0.9% 100 ML IVPB SCH (10:46)
[2024-01-27 10:57] LABS: BF Color Red; Body Fluid Source Bronchioalveol Lavag; Clarity Cloudy/Turbid (Clear)
[2024-01-27 10:58] LABS: BF RBC Count - Manual 666 /cu.mm; BF WBC/Nonhematics Ct.-Manual 434 /cu.mm
[2024-01-27 11:23] LABS: BF Segmented Neutrophils 48 %; Cell Count Non Hematic 45 %; Lymphocytes 7 %
[2024-01-27] MEDS ORDERED: NOREPINEPHRINE 8 MG/250 ML-D5W 250 ML IVPB SCH (11:30)
[2024-01-27] MEDS ORDERED: Sodium Chloride 0.9% 500 ML IV SCH (11:30)
[2024-01-27] MEDS: Pantoprazole 40 MG VIAL IVP SCH (11:43)
[2024-01-27 12:30] LABS: ANA Symphony (Qualitative) Negative (Negative); ANA Symphony (Quantitative) 0.3 Ratio (< 0.7 Negative); Thyroid Peroxidase IgG Ab 5.3 IU/mL (<25 Normal); dsDNA IgG Antibody 1.2 IU/mL (<10 Negative)
[2024-01-27 14:24] LABS: Reference Lab Name LABCORP
[2024-01-27 14:41] LABS: Cardiolipin IgG Ab 3.5 GPL-U/mL (<10 Negative); EliA APS New Method **** NEW METHOD ****; beta-2-Glycoprotein I IgA Ab 5.2 U/mL (<7 Negative); beta-2-Glycoprotein I IgG Ab 2.8 U/mL (<7 Negative); beta-2-Glycoprotein I IgM Abs 8.4 U/mL (<7 Negative)
[2024-01-27 22:13] LABS: A. flavus Negative (Neg:<1:1); A. fumigatus Negative (Neg:<1:1); A. niger Negative (Neg:<1:1)
[2024-01-28 04:28] LABS: Hematocrit 23.3 % (36.0-47.0); Hemoglobin 7.4 g/dL (12.0-16.0); Mean Corpuscular HGB CONC 31.8 g/dL (32.0-36.0); Mean Corpuscular Hemoglobin 27.9 pg (27.0-31.0); Mean Corpuscular Volume 87.9 fL (78.0-98.0); Mean Platelet Volume 10.7 fL (7.4-10.4); Platelet Count 74 10x3/uL (130-400); RBC Distribution Width 24.9 % (11.5-14.5); Red Blood Cell (RBC) Count 2.65 mill/uL (4.20-5.40)
[2024-01-28 04:55] LABS: Anisocytosis SLIGHT = 6-15 cells HPF (0-5); Band 21 % (5-11); Hypochromia SLIGHT = 6-15 cells HPF (0-5); Neutrophil 79 % (42-75); Platelet Adequacy Comment Platelets Decreased; Polychromasia SLIGHT = 2-3 cells HPF (0-2)
[2024-01-28 05:00] LABS: Free T4 (Free Thyroxine) 3.21 ng/dL (0.70-1.48); Thyroid Stimulating Hormone Less than 0.0083 uIU/mL (0.35-4.94)
[2024-01-28 05:05] LABS: Anion Gap 14 mmol/L (10-20); BUN (Urea Nitrogen) 43 mg/dL (9.8-20.1); Calc. Creatinine Clearance 125 mL/min (70-130); Calcium 10.7 mg/dL (7.8-10.44); Carbon Dioxide 21 mmol/L (22-29); Chloride 108 mmol/L (98-107); Estimated GFR 103; Glucose 262 mg/dL (70-105); Magnesium 1.6 mg/dL (1.6-2.6); Phosphorus 2.3 mg/dL (2.3-4.7); Potassium 3.6 mmol/L (3.5-5.1); Sodium 139 mmol/L (136-145)
[2024-01-28 07:27] LABS: Actual Bicarbonate (HCO3a) 24.5 mEq/L (22-28); Base Excess (BEa) 0.9 mEq/L (-2.0 to +3.0); CO2 Tension 34.7 mmHg (35.0-45.0); Calcium, Ionized (arterial) 1.36 mmol/L (1.12-1.30); Hematocrit-ABG 23 % (36.0-47.0); Hemoglobin (Hb) 7.7 g/dL (12.0-16.0); O2 Tension (PaO2), arterial 75.7 mmHg (80.0-100.0); Potassium - ABG Lab 3.64 mmol/L (3.70-5.30); pH, Arterial 7.467 (7.35-7.45)
[2024-01-28 07:41] LABS: ALV-art Gradient 166.125 mmHg (0-20); Puncture Site RRA
[2024-01-28] MEDS: Methimazole 5 MG TAB PO SCH (09:24)
[2024-01-28] MEDS: Sodium Chloride 0.9% 1,000 ML IV SCH (09:24)
[2024-01-28] MEDS: Insulin Lispro 100 UNIT/ML 10 ML VIAL SC PRN (16:11)
[2024-01-28] MEDS: Albumin 25% 25 GM (100 mL) BOT IVPB SCH (16:11)
[2024-01-28] MEDS ORDERED: Propranolol HCl 20 MG TAB PER TUBE SCH (18:00)
[2024-01-28] MEDS: Propranolol HCl 20 MG TAB PER TUBE SCH (18:18)
[2024-01-29 04:16] LABS: Hemoglobin 6.4 g/dL (12.0-16.0); Mean Corpuscular Hemoglobin 28.8 pg (27.0-31.0); Mean Corpuscular Volume 90.1 fL (78.0-98.0); Mean Platelet Volume 10.7 fL (7.4-10.4); Platelet Count 54 10x3/uL (130-400); RBC Distribution Width 25.4 % (11.5-14.5); Red Blood Cell (RBC) Count 2.22 mill/uL (4.20-5.40)
[2024-01-29 04:24] LABS: Anion Gap 15 mmol/L (10-20); BUN (Urea Nitrogen) 64 mg/dL (9.8-20.1); Calc. Creatinine Clearance 105 mL/min (70-130); Calcium 10.1 mg/dL (7.8-10.44); Carbon Dioxide 21 mmol/L (22-29); Chloride 108 mmol/L (98-107); Estimated GFR 83; Glucose 388 mg/dL (70-105); Potassium 4.2 mmol/L (3.5-5.1); Sodium 140 mmol/L (136-145)
[2024-01-29 04:43] LABS: Band 12 % (5-11); Hypochromia SLIGHT = 6-15 cells HPF (0-5); Lymphocytes 1 % (21-51); Monocytes 2 % (0-10); Neutrophil 84 % (42-75); Platelet Adequacy Comment Platelets Decreased; Polychromasia SLIGHT = 2-3 cells HPF (0-2); Reactive Lymphocytes 1 % (0-10); Target Cells SLIGHT = 2-5 cells HPF (0-1)
[2024-01-29 07:17] LABS: Actual Bicarbonate (HCO3a) 24.3 mEq/L (22-28); Base Excess (BEa) 0.4 mEq/L (-2.0 to +3.0); CO2 Tension 35.8 mmHg (35.0-45.0); Calcium, Ionized (arterial) 1.27 mmol/L (1.12-1.30); Carboxyhemoglobin (COHb) 0.4 gm% (0.0-3.0); Hematocrit-ABG 21 % (36.0-47.0); Hemoglobin (Hb) 7.3 g/dL (12.0-16.0); O2 Tension (PaO2), arterial 61.5 mmHg (80.0-100.0); Potassium - ABG Lab 4.19 mmol/L (3.70-5.30)
[2024-01-29 07:41] LABS: Puncture Site RRA
[2024-01-29] MEDS: Pantoprazole 40 MG VIAL IVP SCH (08:26)
[2024-01-29] MEDS: Insulin NPH Human Isophane 100 UNITS/ML (10 ML VIAL) SC SCH (08:53)
[2024-01-29] MEDS: Propranolol 10 MG TAB PER TUBE SCH (11:26)
[2024-01-29] MEDS: VORICONAZOLE IVPB SCH (14:17)
[2024-01-29] MEDS: SODIUM CHLORIDE 0.9% IVPB SCH (14:17)
[2024-01-29 16:01] LABS: Hematocrit 21.4 % (36.0-47.0); Hemoglobin 6.9 g/dL (12.0-16.0)
[2024-01-30 05:05] LABS: Hematocrit 23.4 % (36.0-47.0); Hemoglobin 7.6 g/dL (12.0-16.0); Mean Corpuscular HGB CONC 32.5 g/dL (32.0-36.0); Mean Corpuscular Hemoglobin 29.6 pg (27.0-31.0); Mean Corpuscular Volume 91.1 fL (78.0-98.0); Mean Platelet Volume 11.8 fL (7.4-10.4); Platelet Count 53 10x3/uL (130-400); RBC Distribution Width 23.2 % (11.5-14.5); Red Blood Cell (RBC) Count 2.57 mill/uL (4.20-5.40)
[2024-01-30 05:35] LABS: Band 21 % (5-11); Hypochromia SLIGHT = 6-15 cells HPF (0-5); Lymphocytes 3 % (21-51); Monocytes 2 % (0-10); Neutrophil 74 % (42-75); Platelet Adequacy Comment Platelets Decreased; Polychromasia SLIGHT = 2-3 cells HPF (0-2); Target Cells MODERATE= 6-15 cells HPF (0-1)
[2024-01-30 05:52] LABS: Anion Gap 16 mmol/L (10-20); BUN (Urea Nitrogen) 80 mg/dL (9.8-20.1); Calc. Creatinine Clearance 124 mL/min (70-130); Calcium 9.1 mg/dL (7.8-10.44); Carbon Dioxide 20 mmol/L (22-29); Chloride 111 mmol/L (98-107); Estimated GFR 100; Glucose 392 mg/dL (70-105); Sodium 143 mmol/L (136-145)
[2024-01-30 07:13] LABS: Actual Bicarbonate (HCO3a) 22.7 mEq/L (22-28); Base Excess (BEa) -2.9 mEq/L (-2.0 to +3.0); CO2 Tension 42.4 mmHg (35.0-45.0); Calcium, Ionized (arterial) 1.22 mmol/L (1.12-1.30); Carboxyhemoglobin (COHb) 0.8 gm% (0.0-3.0); Hematocrit-ABG 32 % (36.0-47.0); O2 Tension (PaO2), arterial 67.7 mmHg (80.0-100.0); pH, Arterial 7.346 (7.35-7.45)
[2024-01-30 07:16] LABS: Puncture Site LRA
[2024-01-30] MEDS: Furosemide 40 MG (4 mL) VIAL SLOW IVP SCH (08:32)
[2024-01-30] MEDS: INSULIN REGULAR IN 0.9 % NACL 100 UNITS in Premix 1 BAG IVPB SCH (09:26)
[2024-01-30] MEDS: CCU Insulin Drip FS ONE (09:26)
[2024-01-30 10:11] LABS: ALT (SGPT) 66 U/L (8-55); AST (SGOT) 89 U/L (5-34); Alkaline Phosphatase 640 U/L (40-110); Bilirubin, Direct 5.6 mg/dL (0.1-0.3); Bilirubin, Total 7.8 mg/dL (0.2-1.2); Protein, Total 5.7 g/dL (6.0-8.3)
[2024-01-30] MEDS ORDERED: Insulin Glargine 30 UNITS/0.3 ML VIAL SC SCH ×2 (11:15→21:00)
[2024-01-30] MEDS: VORICONAZOLE IVPB SCH (13:39)
[2024-01-30] MEDS: SODIUM CHLORIDE 0.9% IVPB SCH (13:39)
[2024-01-30 15:13] LABS: Histoplasma Antigen - Urine Negative (<0.2 ng/mL)
[2024-01-30] MEDS: Voriconazole 50 MG TAB PO SCH (21:41)
[2024-01-30] MEDS: Methimazole 10 MG TAB PO SCH (21:50)
[2024-01-31 04:46] LABS: Hematocrit 23.7 % (36.0-47.0); Hemoglobin 7.7 g/dL (12.0-16.0); Mean Corpuscular HGB CONC 32.5 g/dL (32.0-36.0); Mean Corpuscular Hemoglobin 29.3 pg (27.0-31.0); Mean Corpuscular Volume 90.1 fL (78.0-98.0); Platelet Count 53 10x3/uL (130-400); RBC Distribution Width 23.9 % (11.5-14.5); Red Blood Cell (RBC) Count 2.63 mill/uL (4.20-5.40)
[2024-01-31 04:50] LABS: Hemoglobin A1c 6.6 % (4.0-6.0)
[2024-01-31 04:54] LABS: Anion Gap 13 mmol/L (10-20); BUN (Urea Nitrogen) 95 mg/dL (9.8-20.1); Calc. Creatinine Clearance 133 mL/min (70-130); Calcium 8.9 mg/dL (7.8-10.44); Carbon Dioxide 24 mmol/L (22-29); Chloride 117 mmol/L (98-107); Estimated GFR 103; Glucose 119 mg/dL (70-105); Sodium 150 mmol/L (136-145)
[2024-01-31 05:06] LABS: Anisocytosis MARKED = >30 cells HPF (0-5); Band 11 % (5-11); Hypochromia SLIGHT = 6-15 cells HPF (0-5); Lymphocytes 2 % (21-51); Macrocytosis MARKED = >30 cells HPF (0-5); Neutrophil 87 % (42-75); Platelet Adequacy Comment Platelets Normal; Poikilocytosis SLIGHT = 6-15 cells HPF (0-5); Polychromasia SLIGHT = 2-3 cells HPF (0-2); Target Cells SLIGHT = 2-5 cells HPF (0-1)
[2024-01-31 07:10] LABS: Actual Bicarbonate (HCO3a) 22.3 mEq/L (22-28); Base Excess (BEa) -3.4 mEq/L (-2.0 to +3.0); CO2 Tension 42.8 mmHg (35.0-45.0); Calcium, Ionized (arterial) 1.22 mmol/L (1.12-1.30); Hematocrit-ABG 38 % (36.0-47.0); Hemoglobin (Hb) 12.8 g/dL (12.0-16.0); Potassium - ABG Lab 4.07 mmol/L (3.70-5.30); pH, Arterial 7.335 (7.35-7.45)
[2024-01-31 07:12] LABS: Puncture Site RRA
[2024-01-31] MEDS ORDERED: Insulin Glargine 30 UNITS/0.3 ML VIAL SC SCH (09:00)
[2024-01-31] MEDS: Morphine 2 MG/ML VIAL SLOW IVP PRN (09:18)
[2024-01-31] MEDS ORDERED: Acetaminophen 650 MG Suppository PR PRN (09:35)
[2024-01-31] MEDS: Furosemide 40 MG (4 mL) VIAL SLOW IVP SCH (09:44)
[2024-01-31] MEDS: Glycopyrrolate 0.2 MG/ML 5 ML SYRINGE SLOW IVP SCH (10:21)
[2024-01-31] MEDS: methylPREDNISolone Sod Succ 1 GM in Sodium Chloride 0.9% 250 ML 250 ML IVPB SCH (10:41)
[2024-01-31 11:28] LABS: Magnesium 2.3 mg/dL (1.6-2.6)
[2024-01-31 11:29] LABS: ALT (SGPT) 78 U/L (8-55); AST (SGOT) 154 U/L (5-34); Albumin 2.3 g/dL (3.5-5.0); Alkaline Phosphatase 969 U/L (40-110); Protein, Total 5.6 g/dL (6.0-8.3)
[2024-01-31 11:45] LABS: INR-International Normal Ratio 1.6; Prothrombin Time 18.6 sec (12.0-14.7)
[2024-01-31 11:46] LABS: Fibrinogen 485 mg/dL (253-463); PTT 30.8 sec (22.9-36.1)
[2024-01-31 11:49] LABS: Platelet Count 54 10x3/uL (130-400)
[2024-01-31 11:55] LABS: D-Dimer Test 16.05 mcg/mL (0.27-0.43)
[2024-01-31] MEDS: Acetaminophen 325 MG TAB PO PRN (12:00)
[2024-01-31] MEDS: Albumin 25% 25 GM (100 mL) BOT IVPB SCH (18:50)
[2024-01-31] MEDS: Voriconazole 50 MG TAB PO SCH (21:51)
[2024-01-31] MEDS: Ursodiol 300 MG CAP PO SCH (21:55)
[2024-02-01] MEDS: Albumin 25% 25 GM (100 mL) BOT IVPB SCH (00:32)
[2024-02-01 04:31] LABS: Hematocrit 21.3 % (36.0-47.0); Hemoglobin 7.1 g/dL (12.0-16.0); Mean Corpuscular HGB CONC 33.3 g/dL (32.0-36.0); Mean Corpuscular Hemoglobin 29.2 pg (27.0-31.0); Mean Corpuscular Volume 87.7 fL (78.0-98.0); Platelet Count 49 10x3/uL (130-400); Red Blood Cell (RBC) Count 2.43 mill/uL (4.20-5.40)
[2024-02-01 04:48] LABS: ALT (SGPT) 74 U/L (8-55); AST (SGOT) 141 U/L (5-34); Albumin 2.7 g/dL (3.5-5.0); Alkaline Phosphatase 889 U/L (40-110); Anion Gap 17 mmol/L (10-20); BUN (Urea Nitrogen) 114 mg/dL (9.8-20.1); Calc. Creatinine Clearance 113 mL/min (70-130); Calcium 8.5 mg/dL (7.8-10.44); Carbon Dioxide 22 mmol/L (22-29); Chloride 114 mmol/L (98-107); Estimated GFR 88; Globulin 3.1 g/dL (2.4-3.5); Glucose 129 mg/dL (70-105); Magnesium 2.4 mg/dL (1.6-2.6); Potassium 3.9 mmol/L (3.5-5.1); Protein, Total 5.8 g/dL (6.0-8.3); Sodium 149 mmol/L (136-145)
[2024-02-01 05:10] LABS: Band 18 % (5-11); Hypochromia SLIGHT = 6-15 cells HPF (0-5); Lymphocytes 2 % (21-51); Metamyelocyte 1 % (0-0); Neutrophil 79 % (42-75); Platelet Adequacy Comment Platelets Decreased; Polychromasia SLIGHT = 2-3 cells HPF (0-2); Target Cells SLIGHT = 2-5 cells HPF (0-1)
[2024-02-01] MEDS: NOREPINEPHRINE 8 MG/250 ML-D5W 250 ML IVPB SCH (06:02)
[2024-02-01 07:10] LABS: Actual Bicarbonate (HCO3a) 22.4 mEq/L (22-28); Base Excess (BEa) -2.5 mEq/L (-2.0 to +3.0); CO2 Tension 38.5 mmHg (35.0-45.0); Calcium, Ionized (arterial) 1.08 mmol/L (1.12-1.30); Carboxyhemoglobin (COHb) 0.5 gm% (0.0-3.0); Hematocrit-ABG 17 % (36.0-47.0); O2 Tension (PaO2), arterial 73.7 mmHg (80.0-100.0); Potassium - ABG Lab 4.47 mmol/L (3.70-5.30); pH, Arterial 7.382 (7.35-7.45)
[2024-02-01 07:11] LABS: Hemoglobin (Hb) 5.7 g/dL (12.0-16.0)
[2024-02-01 07:12] LABS: ALV-art Gradient 234.675 mmHg (0-20); Puncture Site RRA
[2024-02-01 07:55] LABS: Hematocrit 17.9 % (36.0-47.0); Hemoglobin 5.9 g/dL (12.0-16.0); Mean Corpuscular Hemoglobin 30.1 pg (27.0-31.0); Mean Corpuscular Volume 91.3 fL (78.0-98.0); Platelet Count 71 10x3/uL (130-400); RBC Distribution Width 25.1 % (11.5-14.5); Red Blood Cell (RBC) Count 1.96 mill/uL (4.20-5.40)
[2024-02-01] MEDS ORDERED: Calcium Chloride 1 GM/10 ML Abboject SYRINGE IVP SCH (08:45)
[2024-02-01] MEDS ORDERED: methylPREDNISolone Sod Succ/PF 125 MG/2 ML VIAL IVP SCH (09:00)
[2024-02-01] MEDS: Lactated Ringer's 1,000 ML IV SCH (09:46)
[2024-02-01] MEDS: Calcium Chloride 13.6 MEQ in Sodium Chloride 0.9% 100 ML IVPB SCH (09:51)
[2024-02-01] MEDS: Octreotide Acetate 1,250 MCG in Sodium Chloride 0.9% 250 ML 250 ML IVPB SCH (09:51)
[2024-02-01 10:06] LABS: DRVVT Confirm 43.6
[2024-02-01] MEDS: Lactated Ringer's 500 ML IV SCH (10:12)
[2024-02-01 14:29] LABS: Hematocrit 24.5 % (36.0-47.0); Hemoglobin 8.5 g/dL (12.0-16.0)
[2024-02-02 05:14] LABS: Hemoglobin 8.5 g/dL (12.0-16.0); Mean Corpuscular Hemoglobin 29.1 pg (27.0-31.0); Mean Corpuscular Volume 85.6 fL (78.0-98.0); Platelet Count 46 10x3/uL (130-400); Red Blood Cell (RBC) Count 2.92 mill/uL (4.20-5.40)
[2024-02-02 05:38] LABS: Anisocytosis SLIGHT = 6-15 cells HPF (0-5); Band 10 % (5-11); Hypochromia SLIGHT = 6-15 cells HPF (0-5); Lymphocytes 1 % (21-51); Metamyelocyte 1 % (0-0); Neutrophil 88 % (42-75); Nucleated RBC (Manual Ct) 2 % (0); Platelet Adequacy Comment Platelets Decreased; Poikilocytosis SLIGHT = 6-15 cells HPF (0-5); Polychromasia SLIGHT = 2-3 cells HPF (0-2); Target Cells SLIGHT = 2-5 cells HPF (0-1)
[2024-02-02 06:14] LABS: ALT (SGPT) 83 U/L (8-55); AST (SGOT) 156 U/L (5-34); Albumin 2.2 g/dL (3.5-5.0); Alkaline Phosphatase 825 U/L (40-110); Anion Gap 19 mmol/L (10-20); Bilirubin, Total 11.7 mg/dL (0.2-1.2); Calc. Creatinine Clearance 108 mL/min (70-130); Carbon Dioxide 21 mmol/L (22-29); Chloride 116 mmol/L (98-107); Estimated GFR 84; Globulin 2.8 g/dL (2.4-3.5); Glucose 191 mg/dL (70-105); Sodium 151 mmol/L (136-145)
[2024-02-02] MEDS: Dextrose 5% in Water 1,000 ML IV SCH (06:47)
[2024-02-02 06:56] LABS: BUN (Urea Nitrogen) 127 mg/dL (9.8-20.1)
[2024-02-02 07:00] LABS: Base Excess (BEa) -2.7 mEq/L (-2.0 to +3.0); CO2 Tension 31.5 mmHg (35.0-45.0); Calcium, Ionized (arterial) 1.06 mmol/L (1.12-1.30); Carboxyhemoglobin (COHb) 1.2 gm% (0.0-3.0); Hematocrit-ABG 25 % (36.0-47.0); Hemoglobin (Hb) 8.5 g/dL (12.0-16.0); O2 Tension (PaO2), arterial 85.3 mmHg (80.0-100.0); Potassium - ABG Lab 4.65 mmol/L (3.70-5.30); pH, Arterial 7.441 (7.35-7.45)
[2024-02-02 07:01] LABS: ALV-art Gradient 231.825 mmHg (0-20); Puncture Site RRA
[2024-02-02] MEDS: Furosemide 20 MG (2 mL) VIAL SLOW IVP SCH (09:18)
[2024-02-02] MEDS: Lactulose 20 GM (30 mL) UDCUP PER TUBE SCH (09:18)
[2024-02-02 12:29] VITALS: BMI 31.8
[2024-02-02 14:16] LABS: Fungus Culture Final report (.); Fungus Culture Result 1 Candida glabrata (.); Fungus Stain Final report (.)
[2024-02-02] MEDS: Vecuronium 10 MG VIAL ONE (15:14)
[2024-02-02] MEDS: Vecuronium 10 MG VIAL IVP SCH (15:14)
[2024-02-02 15:46] LABS: BUN (Urea Nitrogen) 131 mg/dL (9.8-20.1)
[2024-02-02 15:47] LABS: Anion Gap 18 mmol/L (10-20); Calc. Creatinine Clearance 116 mL/min (70-130); Calcium 7.5 mg/dL (7.8-10.44); Carbon Dioxide 21 mmol/L (22-29); Chloride 116 mmol/L (98-107); Estimated GFR 85; Glucose 145 mg/dL (70-105); Sodium 150 mmol/L (136-145)
[2024-02-02] MEDS ORDERED: Acetaminophen 650 MG/20.3 ML UDCUP PO PRN (19:45)
[2024-02-02] MEDS: Methimazole 10 MG TAB PER TUBE SCH (20:30)
[2024-02-02] MEDS: Ursodiol 300 MG CAP PER TUBE SCH (20:30)
[2024-02-03 05:12] LABS: Hematocrit 24.2 % (36.0-47.0); Hemoglobin 7.8 g/dL (12.0-16.0); Mean Corpuscular HGB CONC 32.2 g/dL (32.0-36.0); Mean Corpuscular Hemoglobin 28.7 pg (27.0-31.0); Platelet Count 47 10x3/uL (130-400); RBC Distribution Width 23.9 % (11.5-14.5); Red Blood Cell (RBC) Count 2.72 mill/uL (4.20-5.40)
[2024-02-03] MEDS: Methimazole 5 MG TAB PO SCH (05:25)
[2024-02-03 05:38] LABS: Anisocytosis SLIGHT = 6-15 cells HPF (0-5); Band 4 % (5-11); Burr Cells SLIGHT = 2-5 cells HPF (0-1); Hypochromia SLIGHT = 6-15 cells HPF (0-5); Neutrophil 96 % (42-75); Platelet Adequacy Comment Platelets Decreased; Polychromasia SLIGHT = 2-3 cells HPF (0-2); Schistocytes SLIGHT = 2-5 cells HPF (0-1); Smudge Cells 5.9 %; Target Cells SLIGHT = 2-5 cells HPF (0-1); Toxic Granulation SLIGHT
[2024-02-03 05:41] VITALS: BMI 33.8
[2024-02-03 06:02] LABS: ALT (SGPT) 91 U/L (8-55); AST (SGOT) 175 U/L (5-34); Alkaline Phosphatase 820 U/L (40-110); Anion Gap 14 mmol/L (10-20); Bilirubin, Total 13.9 mg/dL (0.2-1.2); Calc. Creatinine Clearance 102 mL/min (70-130); Carbon Dioxide 21 mmol/L (22-29); Chloride 112 mmol/L (98-107); Estimated GFR 68; Glucose 131 mg/dL (70-105); Potassium 5.3 mmol/L (3.5-5.1); Sodium 142 mmol/L (136-145)
[2024-02-03 06:20] LABS: BUN (Urea Nitrogen) 151 mg/dL (9.8-20.1)
[2024-02-03 08:01] LABS: Actual Bicarbonate (HCO3a) 20.2 mEq/L (22-28); Analyzer IN Cardio OR; CO2 Tension 43.1 mmHg (35.0-45.0); Calcium, Ionized (arterial) 0.96 mmol/L (1.12-1.30); Carboxyhemoglobin (COHb) 1.4 gm% (0.0-3.0); Hematocrit-ABG 24 % (36.0-47.0); O2 Tension (PaO2), arterial 76.5 mmHg (80.0-100.0); Potassium - ABG Lab 5.31 mmol/L (3.70-5.30); Puncture Site RRA; pH, Arterial 7.288 (7.35-7.45)
[2024-02-03 08:02] LABS: ALV-art Gradient 226.125 mmHg (0-20)
[2024-02-03] MEDS: Folic Acid 1 MG TAB PER TUBE SCH (08:27)
[2024-02-03] MEDS: Cyanocobalamin (Vitamin B-12) 1,000 MCG TAB PER TUBE SCH (08:27)
[2024-02-03] MEDS: Cholecalciferol 1,000 UNITS (25 MCG) TAB PER TUBE SCH (08:27)
[2024-02-03 09:16] LABS: Epinephrine 196 pg/mL (0-62); Norepinephrine 2130 pg/mL (0-874)
[2024-02-03] MEDS: Meropenem 1 GM in Sodium Chloride 0.9% 100 ML IVPB SCH ×2 (11:40→17:06)
[2024-02-03] MEDS: Methimazole 10 MG TAB PER TUBE SCH (13:08)
[2024-02-03] MEDS ORDERED: methylPREDNISolone Sod Succ/PF 125 MG/2 ML VIAL IVP SCH (15:00)
[2024-02-04 03:04] LABS: Actual Bicarbonate (HCO3a) 18.7 mEq/L (22-28); Base Excess (BEa) -5.9 mEq/L (-2.0 to +3.0); CO2 Tension 32.9 mmHg (35.0-45.0); Calcium, Ionized (arterial) 0.93 mmol/L (1.12-1.30); Carboxyhemoglobin (COHb) 1.7 gm% (0.0-3.0); Hematocrit-ABG 24 % (36.0-47.0); Hemoglobin (Hb) 8.2 g/dL (12.0-16.0); pH, Arterial 7.372 (7.35-7.45)
[2024-02-04 03:13] LABS: O2 Tension (PaO2), arterial 57.5 mmHg (80.0-100.0); Potassium - ABG Lab 6.06 mmol/L (3.70-5.30); Puncture Site LRA
[2024-02-04 03:14] LABS: ALV-art Gradient 257.875 mmHg (0-20)
[2024-02-04] MEDS: Sodium Bicarb 50 mEq/50 ML VIAL IVP SCH ×2 (03:29→20:00)
[2024-02-04] MEDS: Sodium Polystyrene Sulfonate 15 GM (60 mL) BOT PO SCH (03:29)
[2024-02-04 05:16] LABS: BUN (Urea Nitrogen) 176 mg/dL (9.8-20.1)
[2024-02-04 05:19] LABS: Hematocrit 22.5 % (36.0-47.0); Hemoglobin 7.4 g/dL (12.0-16.0); Mean Corpuscular HGB CONC 32.9 g/dL (32.0-36.0); Mean Corpuscular Hemoglobin 29.5 pg (27.0-31.0); Mean Corpuscular Volume 89.6 fL (78.0-98.0); Platelet Count 40 10x3/uL (130-400); RBC Distribution Width 23.8 % (11.5-14.5); Red Blood Cell (RBC) Count 2.51 mill/uL (4.20-5.40)
[2024-02-04 05:21] LABS: ALT (SGPT) 92 U/L (8-55); AST (SGOT) 158 U/L (5-34); Albumin 1.8 g/dL (3.5-5.0); Alkaline Phosphatase 787 U/L (40-110); Anion Gap 19 mmol/L (10-20); Bilirubin, Total 16.2 mg/dL (0.2-1.2); Calc. Creatinine Clearance 70 mL/min (70-130); Carbon Dioxide 20 mmol/L (22-29); Chloride 108 mmol/L (98-107); Estimated GFR 43; Glucose 159 mg/dL (70-105); Potassium 5.9 mmol/L (3.5-5.1); Protein, Total 4.8 g/dL (6.0-8.3); Sodium 141 mmol/L (136-145)
[2024-02-04 05:29] LABS: Calcium 6.7 mg/dL (7.8-10.44)
[2024-02-04] MEDS: Albumin 25% 25 GM (100 mL) BOT IVPB SCH ×2 (06:19→20:26)
[2024-02-04] MEDS: Calcium Chloride 13.6 MEQ in Sodium Chloride 0.9% 100 ML IVPB SCH (06:20)
[2024-02-04 06:24] LABS: Anisocytosis MODERATE=16-30 cells HPF (0-5); Band 1 % (5-11); Lymphocytes 1 % (21-51); Macrocytosis MODERATE=16-30 cells HPF (0-5); Neutrophil 97 % (42-75); Nucleated RBC (Manual Ct) 2 % (0); Platelet Adequacy Comment Significant Decrease; Polychromasia SLIGHT = 2-3 cells HPF (0-2)
[2024-02-04] MEDS: methylPREDNISolone Sod Succ 40 MG VIAL IVP SCH (08:29)
[2024-02-04] MEDS ORDERED: Aspirin 300 MG Suppository PR SCH (09:00)
[2024-02-04 09:12] LABS: Hemoglobin A1c 5.9 % (4.0-6.0)
[2024-02-04] MEDS: Insulin Regular, Human 100 UNIT/ML 10 ML VIAL SC PRN (12:38)
[2024-02-04] MEDS: Amiodarone 150 MG, Admixture Fee 1 EACH in Dextrose 5% in Water 100 ML IVPB SCH (17:30)
[2024-02-04] MEDS: Amiodarone 450 MG, Admixture Fee 1 EACH in Dextrose 5% in Water 250 ML IVPB SCH (17:31)
[2024-02-04 18:39] VITALS: BP 86/32
[2024-02-04] MEDS: Albumin 25% 100 ML ONE (20:00)
[2024-02-04] MEDS ORDERED: Calcium Chloride 1 GM/10 ML Abboject SYRINGE IVP SCH (20:00)
[2024-02-04] MEDS ORDERED: NOREPINEPHRINE 8 MG/250 ML-D5W 250 ML IVPB SCH ×2 (20:00→20:45)
[2024-02-04] MEDS: NOREPINEPHRINE 8 MG/250 ML-D5W 250 ML ONE (20:00)
[2024-02-04] MEDS ORDERED: Calcium Chloride 13.6 MEQ in Sodium Chloride 0.9% 100 ML IVPB SCH ×2 (20:00→20:15)
[2024-02-04 20:04] LABS: Base Excess (BEa) -12.4 mEq/L (-2.0 to +3.0); CO2 Tension 36.9 mmHg (35.0-45.0); Calcium, Ionized (arterial) 1.18 mmol/L (1.12-1.30); Hematocrit-ABG 19 % (36.0-47.0); Hemoglobin (Hb) 6.6 g/dL (12.0-16.0); O2 Tension (PaO2), arterial 66.5 mmHg (80.0-100.0)
[2024-02-04] MEDS: Calcium Chloride 1 GM/10 ML Abboject SYRINGE IVP SCH (20:05)
[2024-02-04] MEDS: Insulin Regular, Human 100 UNIT/ML 10 ML VIAL IVP SCH (20:08)
[2024-02-04] MEDS ORDERED: Sodium Bicarb 50 MEQ/50 ML Abboject 8.4% SYRINGE IVP SCH (20:15)
[2024-02-04] MEDS ORDERED: Sodium Polystyrene Sulfonate 15 GM (60 mL) BOT PO SCH (20:15)
[2024-02-04] MEDS: Dextrose 50% Abboject 50 ML SYRINGE SLOW IVP SCH (20:33)
[2024-02-04] MEDS: Dextrose 50% Abboject 50 ML SYRINGE ONE (20:33)
[2024-02-04] MEDS ORDERED: Norepinephrine 16 MG in Dextrose 5% in Water 234 ML IVPB SCH (20:45)
[2024-02-04 21:00] LABS: Actual Bicarbonate (HCO3a) 14.4 mEq/L (22-28)
[2024-02-04 21:01] LABS: ALV-art Gradient 315.175 mmHg (0-20); Potassium - ABG Lab 6.64 mmol/L (3.70-5.30); Puncture Site LBA
[2024-02-04 21:57] VITALS: TEMP 99.1
[2024-02-04] MEDS: Sodium Bicarb 50 mEq/50 ML VIAL ONE (22:41)
== END 2024-02-04 20:45 | disposition short-term general hospital (02) | DRG 207 ==
LOC: ERS 15:56 → T4-A 22:32 → IMCU/EMU 01-25 12:16 → CCU 01-27 07:46
PROVIDERS: ADMIT Student in an Organized Health Care Education/Training Program; ATTEND Family Medicine
PROC: 0W993ZX Drainage of Right Pleural Cavity, Percutaneous Approach, Diagnostic (ICD-10-PCS; 2024-01-23)
PROC: 0B9F8ZX Drainage of Right Lower Lung Lobe, Via Natural or Artificial Opening Endoscopic, Diagnostic (ICD-10-PCS; principal; 2024-01-27)
PROC: 5A1955Z Respiratory Ventilation, Greater than 96 Consecutive Hours (ICD-10-PCS; 2024-01-27)
PROC: 0B9D8ZX Drainage of Right Middle Lung Lobe, Via Natural or Artificial Opening Endoscopic, Diagnostic (ICD-10-PCS; 2024-01-27)
PROC: 3E033XZ Introduction of Vasopressor into Peripheral Vein, Percutaneous Approach (ICD-10-PCS; 2024-01-27)
PROC: 0BH17EZ Insertion of Endotracheal Airway into Trachea, Via Natural or Artificial Opening (ICD-10-PCS; 2024-01-27)
PROC: 30233N1 Transfusion of Nonautologous Red Blood Cells into Peripheral Vein, Percutaneous Approach (ICD-10-PCS; 2024-01-29)
PROC: 02HV33Z Insertion of Infusion Device into Superior Vena Cava, Percutaneous Approach (ICD-10-PCS; 2024-01-30)
PROC: 30233J1 Transfusion of Nonautologous Serum Albumin into Peripheral Vein, Percutaneous Approach (ICD-10-PCS; 2024-01-31)
PROC: 4A133R1 Monitoring of Arterial Saturation, Peripheral, Percutaneous Approach (ICD-10-PCS; 2024-01-31)
PROC: 4A00X4Z Measurement of Central Nervous Electrical Activity, External Approach (ICD-10-PCS; 2024-02-04)
DX: J16.8 Pneumonia due to other specified infectious organisms (principal); A41.9 Sepsis, unspecified organism; G93.41 Metabolic encephalopathy; J96.01 Acute respiratory failure with hypoxia; R65.21 Severe sepsis with septic shock; I63.9 Cerebral infarction, unspecified; R57.1 Hypovolemic shock; D59.10 Autoimmune hemolytic anemia, unspecified; J47.0 Bronchiectasis with acute lower respiratory infection; J90 Pleural effusion, not elsewhere classified; R04.89 Hemorrhage from other sites in respiratory passages; E87.0 Hyperosmolality and hypernatremia; K92.2 Gastrointestinal hemorrhage, unspecified; K76.6 Portal hypertension; N17.9 Acute kidney failure, unspecified; J84.89 Other specified interstitial pulmonary diseases; M19.90 Unspecified osteoarthritis, unspecified site; K74.3 Primary biliary cirrhosis; E05.90 Thyrotoxicosis, unspecified without thyrotoxic crisis or storm; I12.9 Hypertensive chronic kidney disease with stage 1 through stage 4 chronic kidney disease, or unspecified chronic kidney disease; E83.52 Hypercalcemia; Z66 Do not resuscitate; Z51.5 Encounter for palliative care; D69.59 Other secondary thrombocytopenia; N18.1 Chronic kidney disease, stage 1; I48.91 Unspecified atrial fibrillation; T38.0X5A Adverse effect of glucocorticoids and synthetic analogues, initial encounter; K76.82 Hepatic encephalopathy; E11.65 Type 2 diabetes mellitus with hyperglycemia; E11.22 Type 2 diabetes mellitus with diabetic chronic kidney disease; R59.1 Generalized enlarged lymph nodes; Z87.891 Personal history of nicotine dependence; Z98.51 Tubal ligation status; Z79.899 Other long term (current) drug therapy; Z79.52 Long term (current) use of systemic steroids
CPT/HCPCS: 36415; 36416; 36430; 36600; 70450; 71045; 71250; 71275; 74018; 76536; 80048; 80053; 80076; 80202; 81001; 82040; 82140; 82150; 82164; 82306; 82340; 82384; 82533; 82652; 82805; 82945; 83010; 83036; 83516; 83605; 83615; 83690; 83735; 83880; 83970; 83986; 84100; 84145; 84155; 84157; 84439; 84443; 84478; 84481; 84484; 85025; 85046; 85049; 85060; 85300; 85362; 85384; 85610; 85613; 85730; 86037; 86038; 86140; 86146; 86147; 86160; 86225; 86376; 86606; 86850; 86870; 86900; 86901; 86921; 86922; 87040; 87070; 87081; 87086; 87102; 87107; 87205; 87206; 87385; 87449; 87899; 88112; 88305; 88312; 88341; 88342; 89051; 93005; 93010; 93306; 93880; 94002; 94003; 94640; 95700; 95711; 95819; 96374; 96375; C9113; J0282; J0630; J0692; J1450; J1815; J1940; J2060; J2185; J2248; J2272; J2354; J2405; J2430; J2543; J2920; J2930; J3010; J3370; J3465; J3475; J3490; J7030; J7050; J7070; J7120; J7620; J7999; J8540; P9016; P9047; Q9967